=== PATIENT | male | born 1955 | race Caucasian/White ===

== ENCOUNTER 2017-07-04 08:28 | Inpatient (IN) | payer OTHER ==
[2017-07-04] VITALS (16 sets, daily range): BP systolic 105–159; BP diastolic 62–91; PULSE 63–94; RESP 10–20; Ht 165.1 cm; Wt 82.3 kg
[~2017-07-04] VITALS: Ht 165.1 cm; Wt 82.3 kg
[~2017-07-04 08:28] MED LIST: CEFAZOLIN 2 GM/50 ML (PMX) 50 ML IVPB ONE; GEMF600T60 PO; HYDR-2059 PO; HYDR12.58 PO; LACTATED RINGER'S 1,000 ML IV* SCH; LISI10TA2 PO; ROCURONIUM 50 MG INJ ONE; TRANEXAMIC ACID 2,000 MG in SOD CHLORIDE 0.9% 100 ML IVPB ONE; ZOLOFT
[2017-07-04] MEDS ORDERED: TRAZ100T15 PO (09:22)
[2017-07-04] MEDS ORDERED: LOSA100T7 PO (09:22)
[2017-07-04] MEDS ORDERED: AMLO1CAP14 PO (09:22)
[2017-07-04] MEDS ORDERED: NAPR125O4 PO (09:22)
[2017-07-04] MEDS ORDERED: HIP PAIN COCKTAIL (CEFUROXIME) INJ SCH ×7 (11:30)
--- NOTE | 2017-07-04 11:36 | HPN ---
Date/Time of Note Date/Time of Note DATE: 07/04/17 TIME: 11:36 Interval H&P Admission Note Pt. seen H&P reviewed: No system changes GABRIELE ROSS PA-C Jul 04, 2017 11:36
[2017-07-04] MEDS ORDERED: morphine SULFATE/PF (10 MG/10 ML) INJ ONE (12:04)
[2017-07-04] MEDS ORDERED: TRANEXAMIC ACID 1,000 MG in NS AT INCISION X1 IVPB ONE (12:30)
[2017-07-04] MEDS ORDERED: TRANEXAMIC ACID 1,000 MG in NS AT CLOSURE X1 IVPB ONE (12:30)
[2017-07-04] MEDS ORDERED: PHENYLephrine (100 MCG/ML) 5ML SYG ONE (12:42)
[2017-07-04] MEDS ORDERED: FENTAnyl 50 MCG/ML VIAL IV PRN ×2 (14:30)
[2017-07-04] MEDS ORDERED: ONDANSETRON 4 MG INJ IV PRN (14:30)
[2017-07-04] MEDS ORDERED: MEPERIDINE 25 MG INJ IV PRN (14:30)
[2017-07-04] MEDS ORDERED: HYDROmorphONE (0.2 MG/ML) 10ML SYG IV PRN ×3 (14:30)
[2017-07-04] MEDS ORDERED: METOCLOPRAMIDE 10 MG INJ IV PRN (14:30)
[2017-07-04] MEDS ORDERED: DIPHENHYDRAMINE 50 MG INJ IV PRN (14:30)
[2017-07-04] MEDS ORDERED: CEFAZOLIN 1 GM INJ ONE (15:08)
[2017-07-04] MEDS ORDERED: SUCCINYLCHOLINE CHLORIDE 100 MG/5 ML SYG IV ONE (15:08)
[2017-07-04] MEDS ORDERED: ROCURONIUM 50 MG INJ ONE (15:08)
[2017-07-04] MEDS ORDERED: SUGAMMADEX SODIUM 200 MG/2 ML VIAL IV ONE (15:08)
[2017-07-04] MEDS ORDERED: PROPOFOL 40 ML ONE (15:08)
[2017-07-04] MEDS ORDERED: LIDOCAINE 2% (SDV) 5 ML INJ ONE (15:08)
[2017-07-04] MEDS: DEXTROSE 5%-LR 1,000 ML IV SCH ×2 (15:20→21:00)
--- NOTE | 2017-07-04 15:26 | PDOCDIS ---
Discharge Instructions DIAGNOSIS Discharge Diagnosis Status post right total knee arthroplasty CONDITION Patient Condition: Good HOME CARE INSTRUCTIONS: Diet Instructions: Regular ACTIVITY: Activity Restrictions: Slowly Increase Activity Rest between Activity Avoid heavy lifting No Sexual Activity Do not Drive Do not operate Machinery Do not operate Power Tool Avoid Heavy Housework Keep Limb Elevated (Absolutely no pillows or towel underneath the right knee. May use a couple of pillows/towels underneath the right ankle to keep leg in full extension) Weight Bearing (As tolerated using front wheeled walker) Bathing Restrictions: Shower (Keep surgical area completely dry until postoperative appointment in 10-14 days after surgery) FOLLOW UP/APPOINTMENTS Follow-up Plan Follow-up with Dr. Rucker in 10-14 days at appointment given to you at your preoperative visit. GABRIELE ROSS PA-C Jul 04, 2017 15:26
[2017-07-04] MEDS ORDERED: DOCUSATE SODIUM 100 MG CAP PO ONE (15:30)
[2017-07-04] MEDS ORDERED: ASPIRIN (EC) 325 MG TAB PO ONE (15:30)
[2017-07-04] MEDS ORDERED: ZOLPIDEM 5 MG TAB PO PRN (15:30)
[2017-07-04] MEDS ORDERED: DIPHENHYDRAMINE 50 MG INJ IM PRN (15:30)
[2017-07-04] MEDS: ONDANSETRON 4 MG INJ IV SCH ×2 (15:30→21:30)
[2017-07-04] MEDS ORDERED: COUMADIN NOTE XX SCH (15:30)
[2017-07-04] MEDS ORDERED: NALOXONE (0.4 MG/ML) INJ IV PRN (15:30)
[2017-07-04] MEDS ORDERED: NA PHOSPHATE/BIPHOS 133 ML ENEMA PR PRN (15:30)
[2017-07-04] MEDS ORDERED: MAGNESIUM HYDROXIDE 30ML CUP PO PRN (15:30)
[2017-07-04] MEDS ORDERED: BISACODYL 10 MG SUPP PR PRN (15:30)
[2017-07-04] MEDS ORDERED: HYDROmorphONE 0.2 MG/ML PCA IV PRN (15:30)
[2017-07-04] MEDS ORDERED: BETHANECHOL 25 MG TAB PO PRN (15:30)
[2017-07-04] MEDS ORDERED: MEPERIDINE 10 MG/ML 30 ML PCA IV PRN (15:30)
[2017-07-04] MEDS: ACETAMINOPHEN 1000MG/100ML IV 100 ML IVPB SCH ×2 (15:37→23:02)
[2017-07-04] MEDS: CEFAZOLIN 1 GM/50 ML (PMX) 50 ML IVPB SCH ×2 (15:37→23:02)
--- NOTE | 2017-07-04 16:16 | RADRPT ---
PROCEDURE: Right knee x-ray CLINICAL INDICATION: Postop. TECHNIQUE: AP, lateral and oblique views of the knee were obtained. COMPARISON: No. FINDINGS: Subcutaneous emphysema is noted surrounding the patella with some air noted in the joint space. The total right knee arthroplasty was performed. The components appear anatomically aligned. There is scott cency around the medial side of the femoral component. IMPRESSION: 1. Status post total right knee arthroplasty with soft tissue swelling and subcutaneous emphysema r elated to surgery. 2. There is a band of lucency adjacent to the medial side of the femoral component of unclear etiol ogy. Clinical correlation for signs of loosening or infection recommended. RPTAT:AAJJ Physician Sarbjit Date Time Electronically viewed and signed by Physician Sarbjit on 07/04/2017 16:15 HERLINDA/
[2017-07-04] MEDS ORDERED: OXYCODONE/ACETAMINOPHEN (5/325) TAB PO PRN (20:00)
[2017-07-04] MEDS ORDERED: ACETAMINOPHEN 325 MG TAB PO PRN (20:00)
[2017-07-04] MEDS: traZODone 100 MG TAB PO SCH (21:00)
[2017-07-04] MEDS: ATORVASTATIN 40 MG TAB PO SCH (21:00)
[2017-07-04] MEDS: GABAPENTIN 100 MG CAP PO SCH (21:00)
[2017-07-05 02:49] VITALS: BP 120/74; RESP 20
[2017-07-05] MEDS: ONDANSETRON 4 MG INJ IV SCH ×3 (03:30→09:36)
[2017-07-05] MEDS: oxyCODONE 5 MG TAB PO PRN ×5 (04:37→20:58)
[2017-07-05 05:00] VITALS: BP 117/61; RESP 18
[2017-07-05 05:07] LABS: BASOPHILS % 0.3 % (0.0-2.0); EOSINOPHILS # 0.3 10^3/ul (0.0-0.5); EOSINOPHILS % 2.9 % (0.0-7.0); HEMATOCRIT 31.8 % (42.0-52.0); HEMOGLOBIN 10.8 g/dl (14.0-18.0); LYMPHOCYTES # 1.4 10^3/ul (0.8-2.9); LYMPHOCYTES % 15.9 % (15.0-51.0); MEAN CORPUSCULAR HEMOGLOBIN 29.8 pg (29.0-33.0); MEAN CORPUSCULAR VOLUME 87.8 fl (82.0-101.0); MEAN PLATELET VOLUME 11.2 fl (7.4-10.4); MONOCYTE # 0.7 10^3/ul (0.3-0.9); MONOCYTES % 7.3 % (0.0-11.0); NEUTROPHIL # 6.6 10^3/ul (1.6-7.5); NEUTROPHILS % 73.4 % (39.0-77.0); PLATELET COUNT 134 10^3/UL (140-415); RED BLOOD COUNT 3.62 10^6/ul (4.70-6.10); RED CELL DISTRIBUTION WIDTH 13.2 % (11.5-14.5); WHITE BLOOD COUNT 9.1 10^3/ul (4.8-10.8)
[2017-07-05] MEDS ORDERED: BUPIVACAINE 0.25%/EPI (SDV) 30 ML INJ INJ PRN (06:00)
--- NOTE | 2017-07-05 06:06 | OPR ---
DATE OF OPERATION: 07/04/2017 PREOPERATIVE DIAGNOSIS: Right knee osteoarthritis. POSTOPERATIVE DIAGNOSIS: Right knee osteoarthritis. PROCEDURES PERFORMED: 1. Right total knee arthroplasty, CPT code 00596. 2. Computer-assisted surgical navigational procedure for total knee, CPT code 29346. SURGEON: Blessing Rucker MD. MARKET RESEARCH LEAD: 1. Clemente Skinner. 2. GABRIELA Saleem ANESTHESIOLOGIST: Dr. Bartholomew. ANESTHESIA: Spinal. ESTIMATED BLOOD LOSS: 300 mL. COMPLICATIONS: None. SPECIMENS: Resected bone. TOURNIQUET TIME: 90 minutes at 250 mmHg. DISPOSITION: To PACU in stable condition. IMPLANT USED: [employer] doni total knee, size 6 narrow femur, size 4 tibia, 32 mm all symmetric patella, 9 mm posterior stabilized polyethylene. INDICATION FOR PROCEDURE: This is a 62-year-old male with endstage osteoarthritis of the right knee who has failed nonoperative management. Risks , benefits, alternatives of surgical intervention were discussed with the patient and informed consent was obtained. The risks of surgery include but are not limited to infection, deep venous thrombosis, pulmonary embolism, damage to neurovascular structures, wound healing problems, loosening of the prosthesis, wear of prosthesis, need for revision surgery, stiffness, need for blood transfusion, heart attack, stroke, risks associated with anesthesia and even . DESCRIPTION OF PROCEDURE: The patient was met in the preoperative suite. The correct operative site was confirmed and marked. He was then brought into operating room. After induction of spinal anesthesia, he was placed in the supine position on the operating room table. A tourniquet was applied to the right upper thigh and the right lower extremity was prepped and draped in the usual sterile fashion. Before starting, a timeout was taken to identify the correct operative site and to confirm that preoperative antibiotics consisting of 1 gram of IV Ancef along with 1 gram of tranexamic acid were administered. At this point, the right leg was then elevated and exsanguinated. The tourniquet was then insufflated for the above-noted time. A midline incision was made and median parapatellar arthrotomy was then completed. The lateral patellar retinacular ligaments were released and the patella was retracted laterally. A sleeve of tissue was released from the proximal medial tibia. The cruciate and the menisci were excised along with the suprapatellar fat pad. The intramedullary hole was drilled into the femur and the femoral phoebe was attached to the anterior cutting block set at 5 degrees of valgus. The block was then pinned into position and the distal femoral cut was made, taking 9.5 mm of distal femur. All the osteophytes were removed. The femur was sized to a size 6. The 4-in-1 cutting block was pinned and the anterior and posterior condylar cuts followed by the anterior, posterior chamfer cuts were then completed. At this point, the tibia was then subluxed anteriorly using the navigation OrthAlign. The slope was set at 4 degrees with 0 degrees of varus and valgus, 2 mm was resected off the medial tibial plateau and 8 mm off the lateral tibial plateau. The gap billing checker was used and noted to have equal extension and flexion gaps with a 9 mm insert. The tibia was sized to a size 4. The tibial tray was then pinned and the keel was punched. Next, the femoral component was placed and the femoral box cut was then completed. At this point, the patella was sized to 24 mm and 10 mm was resected. The patella was sized to a 32 mm. Trial components along with a 9 mm insert were placed, the knee was noted to have full extension with greater than 120 degrees of flexion. The knee was also stable to varus valgus stress and had excellent patellar tracking. The trial components were removed. All bony surfaces were pulse lavaged and dried. The appropriate size components were brought into the field and cemented. With the removal of excess cement, the knee was held in extension until the cement had cured. At this point, the tourniquet was deflated. The tranexamic acid and antibiotics were redosed. Once the cement had cured, the trial polyethylene was removed and the appropriate size 9 mm posterior stabilized polyethylene was placed. Hemostasis was obtained. The arthrotomy was closed using a #1 Vicryl in interrupted [id number] fashion followed by closure with subcutaneous tissue with 2-0 Vicryl and the skin with 3-0 Monocryl in subcuticular fashion with Steri-Strips. Sterile dressing was applied followed by a cold pack and Reji wrap. The patient was awakened and taken to postoperative care unit in stable condition. Prior to taking the patient to the PACU, he was noted to have bounding dorsalis pedis and posterior tibialis pulses. POSTOPERATIVE CARE: Patient will be weightbearing as tolerated. He will work with physical therapy. He will receive 2 additional doses of IV Ancef along with aspirin 325 mg p.o. b.i.d. for 6 weeks. Upon discharge, he will follow up in my office within 2 weeks postoperatively. Dictated By: BLESSING JEFFREY/AFSANEH Conf#: [id number] DID#: [id number] MTDD
[2017-07-05] MEDS: DEXAMETHASONE 4 MG/ML 1 ML INJ IV SCH (06:28)
--- NOTE | 2017-07-05 07:19 | PN ---
Date/Time of Note Date/Time of Note DATE: 07/05/17 TIME: 07:16 Assessment/Plan VTE Prophylaxis VTE Prophylaxis Intervention: ambulation, SCD's, other (Aspirin 325 mg twice daily) Lines/Catheters IV Catheter Type (from Nrsg): Peripheral IV Killian in Place (from Nrsg): Yes Assessment/Plan Problems: (1) Status post total right knee replacement Assessment/Plan -Pain Meds as needed -Dressing is clean and intact. -OOB with PT -ASA/SCDs for DVT Prophylaxis -Continue monitoring with Internal Medicine -Patient Stable. Possible discharge home today depending on physical therapy progression but likely discharge home tomorrow. Subjective 24 Hr Interval Summary 62-year-old male postop day 1 status post right total knee arthroplasty. Patient states that overnight there was no complaints or acute events. Having pain this morning. Has not performed physical therapy since surgery. Plan is to initiate physical therapy today. Patient has not been weightbearing since. Currently resting comfortably with 3 pillows under the ankle. Pain Control: well controlled Exam/Review of Systems Vital Signs Vitals Vital Signs Date Time Temp Pulse Resp B/P Pulse Ox O2 Delivery O2 Flow Rate FiO2 07/05/17 05:00 98.8 18 117/61 99 Nasal Cannula 2.0 07/05/17 02:49 54 Intake and Output 07/04/17 07/04/17 07/05/17 15:00 23:00 07:00 Intake Total 2300 ml 1190 ml Output Total 420 ml 500 ml 950 ml Balance 1880 ml -500 ml 240 ml Exam Free Text/Dictation -No complications with dressing intact. -5/5 Tibialis Anterior, EHL Gastrocnemius/Soleus and Peroneals -Leg resting in near full extension with 3 pillows under the ankle. Pain with passive range of motion and attempts to achieve full extension. Patient is able to flex to 30 today with pain on passive range of motion. -Normal Sensation -Palpable DP/PT, Capillary Refill <2 secs -No Distal Edema -Negative Kiley Sign/No calf pain -Toes Freely Movable Constitutional: alert, oriented, well developed Results Result Diagram: 07/05/17 0436 GABRIELE ROSS PA-C Jul 05, 2017 07:18
[2017-07-05 08:03] VITALS: BP 154/89; RESP 18
[2017-07-05] MEDS: ACETAMINOPHEN 1000MG/100ML IV 100 ML IVPB SCH ×3 (08:16→22:43)
[2017-07-05] MEDS: DOCUSATE SODIUM 100 MG CAP PO SCH ×2 (08:18→20:59)
[2017-07-05] MEDS: CELECOXIB 200 MG CAP PO SCH ×2 (08:18→22:49)
[2017-07-05] MEDS: FERROUS FUMARATE (SR) TAB PO SCH ×2 (08:18→20:59)
[2017-07-05] MEDS: ASPIRIN (EC) 325 MG TAB PO SCH ×2 (08:18→20:59)
[2017-07-05] MEDS: AMLODIPINE 10 MG TAB PO SCH (08:19)
[2017-07-05] MEDS: SERTRALINE 100 MG TAB PO SCH (08:19)
[2017-07-05] MEDS: LOSARTAN 50 MG TAB PO SCH (08:19)
[2017-07-05] MEDS: CHLORTHALIDONE 25 MG TAB PO SCH (08:19)
[2017-07-05] MEDS: GABAPENTIN 100 MG CAP PO SCH ×2 (08:19→20:59)
[2017-07-05] MEDS: CEFAZOLIN 1 GM/50 ML (PMX) 50 ML IVPB SCH (08:38)
[2017-07-05] MEDS ORDERED: oxyCODONE 5 MG TAB PO PRN (09:00)
--- NOTE | 2017-07-05 09:15 | HP ---
Date/Time of Note Date/Time of Note DATE: 07/04/17 TIME: 1800 Assessment/Plan VTE Prophylaxis VTE Prophylaxis Intervention: SCD's Lines/Catheters IV Catheter Type (from Nrsg): Peripheral IV Urinary Cath still in place: No Assessment/Plan Chief Complaint/Hosp Course Patient is a 62-year-old male presenting for elective right knee total and we need placement Assessment and plan Total right knee replacement Hypertension GERD Chronic pancreatitis Hypertension Depression Osteoarthritis -Management per orthopedics -Restart home meds as able -Pain control Hydrate DC when okay with or so Problems: HPI/ROS Admit Date/Time Admit Date/Time Jul 04, 2017 at 08:28 Hx of Present Illness Please note that this dictation was done approximately the next day given to computer downtime. This dictation should be dated for July 04, 2017 at 1800. Patient is a 62-year-old male with a past medical history significant for hypertension, depression, asthma, chronic pancreatitis who presents to [facility] for elective right knee total knee replacement. Patient underwent successful total knee replacement and was admitted into the hospital for monitoring. Hospitalist service was called for medication management. Patient at time of interview has no acute complaints except for right knee pain. Patient denies any other acute issues at this time. Patient denies nausea, vomiting, shortness of breath, headache, chest pain. Patient takes all medications at home as directed. PMH: Asthma, GERD, pancreatitis, hypertension, depression, osteoarthritis PSH: Right inguinal hernia surgery, pancreatic surgery Social:occasional alcohol, occasional smoking, denies drugs except for occasional marijuana use Meds: Losartan, amlodipine, chlorthalidone, Zoloft, trazodone, atorvastatin, omeprazole PMH/Family/Social Social History Smoking Status: Current every day smoker Exam/Review of Systems Vital Signs Vitals Vital Signs Date Time Temp Pulse Resp B/P Pulse Ox O2 Delivery O2 Flow Rate FiO2 07/05/17 08:03 97.7 80 18 154/89 98 07/05/17 05:00 Nasal Cannula 2.0 Intake and Output 07/04/17 07/04/17 07/05/17 15:00 23:00 07:00 Intake Total 2300 ml 1190 ml Output Total 420 ml 500 ml 950 ml Balance 1880 ml -500 ml 240 ml Exam Exam Physical exam General: Patient is laying in bed and answers questions appropriately Mentation: Patient is alert and oriented 4, Head: Normocephalic atraumatic Eyes: EOMI, pupils reactive to light Neck: Supple, nontender, midline Respiratory: Clear to auscultation bilaterally Cardiovascular: regular rate, no obvious murmurs Gastrointestinal: non-tender to palpation, bowel sounds heard. Neurological: Moves all extremities spontaneously except R LE in immobilizer Skin: No new skin lesions Labs Result Diagram: 07/05/17 0436 Medications Medications Current Medications Lactated Ringer's 1,000 ml @ 0 mls/hr Q0M IV* ; Start 07/04/17 at 06:00 Dextrose/Lactated Ringer's (D5-Lr) 1,000 ml @ 80 mls/hr [id number] IV Last administered on 07/04/17 21:00; Admin Dose 80 MLS/HR; Start 07/04/17 at 15:20 Oxycodone HCl (Roxicodone) 20 mg Q3H PRN PO PAIN LEVEL 8-10 Last administered on 07/05/17 08:24; Admin Dose 20 MG; Start 07/04/17 at 15:30 Oxycodone HCl (Roxicodone) 10 mg Q3H PRN PO PAIN LEVEL 4-7; Start 07/05/17 at 09:00 Oxycodone HCl 5 mg 5 mg Q3H PRN PO PAIN LEVEL 1-3; Start 07/05/17 at 09:00 Acetaminophen (Ofirmev 1000mg/ 100ml Iv) 100 ml @ 400 mls/hr Q8H IVPB Last administered on 07/05/17 08:16; Admin Dose 400 MLS/HR; Start 07/04/17 at 15:30 ; Stop 07/06/17 at 07:44 Zolpidem Tartrate (Ambien) 5 mg HS PRN PO INSOMNIA; Start 07/04/17 at 15:30 Ondansetron HCl (Zofran Inj) 4 mg Q6H IV ; Start 07/04/17 at 15:30; Stop at 09:31 Miscellaneous Information (Note) NOTE XX ; Start 07/04/17 at 15:30 Aspirin (Ecotrin) 325 mg BID PO Last administered on 07/05/17 08:18; Admin Dose 325 MG; Start 07/05/17 at 09:00 Celecoxib (Celebrex) 200 mg BID PO Last administered on 07/05/17 08:18; Admin Dose 200 MG; Start 07/05/17 at 09:00 Dexamethasone (Decadron) 4 mg DAILY@07 IV Last administered on 07/05/17 06:28 ; Admin Dose 4 MG; Start 07/05/17 at 07:00; Stop 07/08/17 at 06:59 Pantoprazole (Protonix Tab) 40 mg DAILY@06 PO ; Start 07/06/17 at 06:00 Docusate Sodium/ Ferrous Fumarate (Leonel-Sequels) 1 tab BID PO Last administered on 07/05/17 08:18; Admin Dose 1 TAB; Start 07/05/17 at 09:00 Docusate Sodium (Colace) 200 mg BID PO Last administered on 07/05/17 08:18; Admin Dose 200 MG; Start 07/05/17 at 09:00; Stop 07/08/17 at 08:59 Simethicone (Mylicon) 80 mg TID PRN PO DISTENSION/GAS/BLOATING; Start 07/04/17 at 15:30 Senna/Docusate Sodium (Senokot-S) 2 tab BID PRN PO CONSTIPATION; Start at 15:30 Magnesium Hydroxide (Milk Of Mag) 30 ml HS PRN PO CONSTIPATION; Start 07/04/17 at 15:30 Bisacodyl (Dulcolax Supp) 10 mg DAILY PRN [place] CONSTIPATION; Start 07/04/17 at 15 :30 Sodium Biphosphate/ Sodium Phosphate (Fleet Enema) 133 ml DAILY PRN [place] CONSTIPATION; Start 07/04/17 at 15:30 Diphenhydramine HCl (Benadryl) 25 mg Q4H PRN IM ITCHING OR RASH; Start at 15:30 Bupivacaine HCl/ Epinephrine Bitart (Marcaine 0.25%/ Epi (Sdv) 30 ml) 20 ml DAILY@06 PRN INJ ADMINSTER BY SURGEON ONLY; Start 07/05/17 at 06:00; Stop 07/15 at 05:59 Naloxone HCl (Narcan) 0.2 mg Q2M PRN IV DECREASED REPIRATORY RATE; Start at 15:30 Gabapentin (Neurontin) 100 mg BID PO Last administered on 07/05/17 08:19; Admin Dose 100 MG; Start 07/04/17 at 21:00; Stop 07/07/17 at 20:59 Losartan Potassium (Cozaar) 100 mg DAILY PO Last administered on 07/05/17 08: 19; Admin Dose 100 MG; Start 07/05/17 at 09:00 Amlodipine Besylate (Norvasc) 10 mg DAILY PO Last administered on 07/05/17 08: 19; Admin Dose 10 MG; Start 07/05/17 at 09:00 Chlorthalidone (Hygroton) 25 mg DAILY PO Last administered on 07/05/17 08:19; Admin Dose 25 MG; Start 07/05/17 at 09:00 Sertraline HCl (Zoloft) 100 mg DAILY PO Last administered on 07/05/17 08:19; Admin Dose 100 MG; Start 07/05/17 at 09:00 Trazodone HCl (Desyrel) 100 mg HS PO ; Start 07/04/17 at 21:00 Atorvastatin Calcium (Lipitor) 40 mg DAILY@21 PO ; Start 07/04/17 at 21:00 Oxycodone/ Acetaminophen (Endocet (10/ 325)) 1 tab Q4H PRN PO PAIN 7-10; Start 07/04/17 at 20:00; Status Future hold Oxycodone/ Acetaminophen (Percocet (5/ 325)) 1 tab Q4H PRN PO PAIN 4-6; Start 07/04/17 at 20:00; Status Future hold Acetaminophen (Tylenol Tab) 325 mg Q6H PRN PO FEVER/ PAIN 1-3; Start 07/04/17 at 20:00 MARYURI SÁNCHEZ Jul 05, 2017 09:15
--- NOTE | 2017-07-05 13:37 | PN ---
Date/Time of Note Date/Time of Note DATE: 07/05/17 TIME: 13:36 Assessment/Plan VTE Prophylaxis VTE Prophylaxis Intervention: SCD's Lines/Catheters IV Catheter Type (from Nrs): Peripheral IV Urinary Cath still in place: No Assessment/Plan Chief Complaint/Hosp Course Patient is a 62-year-old male presenting for elective right knee total and we need placement Assessment and plan Total right knee replacement Hypertension GERD Chronic pancreatitis Hypertension Depression Osteoarthritis -Management per orthopedics -Restart home meds as able -Pain control -PT/OT DISPO: Patient may need PT/OT inpatient due to living alone in [facility] when okay with ortho Problems: Subjective 24 Hr Interval Summary Free Text/Dictation no acute issues or complaints Exam/Review of Systems Vital Signs Vitals Vital Signs Date Time Temp Pulse Resp B/P Pulse Ox O2 Delivery O2 Flow Rate FiO2 07/05/17 08:03 97.7 80 18 154/89 98 07/05/17 05:00 Nasal Cannula 2.0 Intake and Output 07/04/17 07/04/17 07/05/17 15:00 23:00 07:00 Intake Total 2300 ml 1190 ml Output Total 420 ml 500 ml 950 ml Balance 1880 ml -500 ml 240 ml Exam Physical exam General: Patient is laying in bed and answers questions appropriately Mentation: Patient is alert and oriented 4, Head: Normocephalic atraumatic Eyes: EOMI, pupils reactive to light Neck: Supple, nontender, midline Respiratory: Clear to auscultation bilaterally Cardiovascular: regular rate, no obvious murmurs Gastrointestinal: non-tender to palpation, bowel sounds heard. Neurological: Moves all extremities spontaneously except R LE in immobilizer Skin: No new skin lesions Results Result Diagram: 07/05/17 0436 Results 24 hrs Laboratory Tests Test 07/05/17 04:36 White Blood Count 9.1 Red Blood Count 3.62 L Hemoglobin 10.8 L Hematocrit 31.8 L Mean Corpuscular Volume 87.8 Mean Corpuscular Hemoglobin 29.8 Mean Corpuscular Hemoglobin Concent 34.0 Red Cell Distribution Width 13.2 Platelet Count 134 L Mean Platelet Volume 11.2 H Neutrophils % 73.4 Lymphocytes % 15.9 Monocytes % 7.3 Eosinophils % 2.9 Basophils % 0.3 Nucleated Red Blood Cells % 0.0 Neutrophils # 6.6 Lymphocytes # 1.4 Monocytes # 0.7 Eosinophils # 0.3 Basophils # 0.0 Nucleated Red Blood Cells # 0.0 Medications Medications Current Medications Lactated Ringer's (Lr) 1,000 ml @ 0 mls/hr Q0M IV* ; Start 07/04/17 at 06:00 Oxycodone HCl (Roxicodone) 20 mg Q3H PRN PO PAIN LEVEL 8-10 Last administered on 07/05/17 11:45; Admin Dose 20 MG; Start 07/04/17 at 15:30 Oxycodone HCl (Roxicodone) 10 mg Q3H PRN PO PAIN LEVEL 4-7; Start 07/05/17 at 09:00 Oxycodone HCl 5 mg 5 mg Q3H PRN PO PAIN LEVEL 1-3; Start 07/05/17 at 09:00 Acetaminophen (Ofirmev 1000mg/ 100ml Iv) 100 ml @ 400 mls/hr Q8H IVPB Last administered on 07/05/17 08:16; Admin Dose 400 MLS/HR; Start 07/04/17 at 15:30 ; Stop 07/06/17 at 07:44 Zolpidem Tartrate (Ambien) 5 mg HS PRN PO INSOMNIA; Start 07/04/17 at 15:30 Miscellaneous Information (Note) NOTE XX ; Start 07/04/17 at 15:30 Aspirin (Ecotrin) 325 mg BID PO Last administered on 07/05/17 08:18; Admin Dose 325 MG; Start 07/05/17 at 09:00 Celecoxib (Celebrex) 200 mg BID PO Last administered on 07/05/17 08:18; Admin Dose 200 MG; Start 07/05/17 at 09:00 Dexamethasone (Decadron) 4 mg DAILY@07 IV Last administered on 07/05/17 06:28 ; Admin Dose 4 MG; Start 07/05/17 at 07:00; Stop 07/08/17 at 06:59 Pantoprazole (Protonix Tab) 40 mg DAILY@06 PO ; Start 07/06/17 at 06:00 Docusate Sodium/ Ferrous Fumarate (Leonel-Sequels) 1 tab BID PO Last administered on 07/05/17 08:18; Admin Dose 1 TAB; Start 07/05/17 at 09:00 Docusate Sodium (Colace) 200 mg BID PO Last administered on 07/05/17 08:18; Admin Dose 200 MG; Start 07/05/17 at 09:00; Stop 07/08/17 at 08:59 Simethicone (Mylicon) 80 mg TID PRN PO DISTENSION/GAS/BLOATING; Start 07/04/17 at 15:30 Senna/Docusate Sodium (Senokot-S) 2 tab BID PRN PO CONSTIPATION; Start at 15:30 Magnesium Hydroxide (Milk Of Mag) 30 ml HS PRN PO CONSTIPATION; Start 07/04/17 at 15:30 Bisacodyl (Dulcolax Supp) 10 mg DAILY PRN [place] CONSTIPATION; Start 07/04/17 at 15 :30 Sodium Biphosphate/ Sodium Phosphate (Fleet Enema) 133 ml DAILY PRN [place] CONSTIPATION; Start 07/04/17 at 15:30 Diphenhydramine HCl (Benadryl) 25 mg Q4H PRN IM ITCHING OR RASH; Start at 15:30 Bupivacaine HCl/ Epinephrine Bitart (Marcaine 0.25%/ Epi (Sdv) 30 ml) 20 ml DAILY@06 PRN INJ ADMINSTER BY SURGEON ONLY; Start 07/05/17 at 06:00; Stop 07/15 at 05:59 Naloxone HCl (Narcan) 0.2 mg Q2M PRN IV DECREASED REPIRATORY RATE; Start at 15:30 Gabapentin (Neurontin) 100 mg BID PO Last administered on 07/05/17 08:19; Admin Dose 100 MG; Start 07/04/17 at 21:00; Stop 07/07/17 at 20:59 Losartan Potassium (Cozaar) 100 mg DAILY PO Last administered on 07/05/17 08: 19; Admin Dose 100 MG; Start 07/05/17 at 09:00 Amlodipine Besylate (Norvasc) 10 mg DAILY PO Last administered on 07/05/17 08: 19; Admin Dose 10 MG; Start 07/05/17 at 09:00 Chlorthalidone (Hygroton) 25 mg DAILY PO Last administered on 07/05/17 08:19; Admin Dose 25 MG; Start 07/05/17 at 09:00 Sertraline HCl (Zoloft) 100 mg DAILY PO Last administered on 07/05/17 08:19; Admin Dose 100 MG; Start 07/05/17 at 09:00 Trazodone HCl (Desyrel) 100 mg HS PO ; Start 07/04/17 at 21:00 Atorvastatin Calcium (Lipitor) 40 mg DAILY@21 PO ; Start 07/04/17 at 21:00 Oxycodone/ Acetaminophen (Endocet (10/ 325)) 1 tab Q4H PRN PO PAIN 7-10; Start 07/04/17 at 20:00; Status Future hold Oxycodone/ Acetaminophen (Percocet (5/ 325)) 1 tab Q4H PRN PO PAIN 4-6; Start 07/04/17 at 20:00; Status Future hold Acetaminophen (Tylenol Tab) 325 mg Q6H PRN PO FEVER/ PAIN 1-3; Start 07/04/17 at 20:00 MARYURI SÁNCHEZ Jul 05, 2017 13:37
[2017-07-05 17:35] VITALS: BP 128/81; RESP 18
[2017-07-05 20:00] VITALS: BP 129/58; RESP 18
[2017-07-05] MEDS: ATORVASTATIN 40 MG TAB PO SCH (20:59)
[2017-07-05] MEDS: traZODone 100 MG TAB PO SCH (20:59)
[2017-07-06] MEDS: oxyCODONE 5 MG TAB PO PRN ×2 (00:22→15:38)
[2017-07-06 02:00] VITALS: BP 129/73; RESP 18
[2017-07-06 05:20] LABS: BASOPHILS % 0.1 % (0.0-2.0); EOSINOPHILS % 0.2 % (0.0-7.0); HEMATOCRIT 29.3 % (42.0-52.0); HEMOGLOBIN 10.2 g/dl (14.0-18.0); LYMPHOCYTES # 1.3 10^3/ul (0.8-2.9); LYMPHOCYTES % 12.5 % (15.0-51.0); MEAN CORPUSCULAR HEMOGLOBIN 30.6 pg (29.0-33.0); MEAN CORPUSCULAR HGB CONC 34.8 g/dl (32.0-37.0); MEAN PLATELET VOLUME 11.8 fl (7.4-10.4); MONOCYTE # 0.7 10^3/ul (0.3-0.9); MONOCYTES % 6.7 % (0.0-11.0); NEUTROPHIL # 8.1 10^3/ul (1.6-7.5); NEUTROPHILS % 80.2 % (39.0-77.0); PLATELET COUNT 134 10^3/UL (140-415); POSITIVE DIFF @See below; RED BLOOD COUNT 3.33 10^6/ul (4.70-6.10); RED CELL DISTRIBUTION WIDTH 13.2 % (11.5-14.5)
[2017-07-06] MEDS: DEXAMETHASONE 4 MG/ML 1 ML INJ IV SCH (06:15)
[2017-07-06] MEDS: PANTOPRAZOLE (EC) 40 MG TAB PO SCH (06:15)
[2017-07-06 06:18] LABS: CALCIUM 8.2 mg/dl (8.4-10.2); CREATININE 1.14 mg/dl (0.61-1.24); PHOSPHORUS 3.8 mg/dl (2.5-4.9); POTASSIUM 3.2 mmol/L (3.5-5.1)
[2017-07-06] MEDS: ACETAMINOPHEN 1000MG/100ML IV 100 ML IVPB SCH (06:18)
[2017-07-06 07:00] VITALS: BP 135/63; RESP 18
[2017-07-06] MEDS: SERTRALINE 100 MG TAB PO SCH (09:15)
[2017-07-06] MEDS: FERROUS FUMARATE (SR) TAB PO SCH ×2 (09:16→20:12)
[2017-07-06] MEDS: CHLORTHALIDONE 25 MG TAB PO SCH (09:16)
[2017-07-06] MEDS: CELECOXIB 200 MG CAP PO SCH ×2 (09:16→20:12)
[2017-07-06] MEDS: DOCUSATE SODIUM 100 MG CAP PO SCH ×2 (09:16→20:12)
[2017-07-06] MEDS: AMLODIPINE 10 MG TAB PO SCH (09:16)
[2017-07-06] MEDS: ASPIRIN (EC) 325 MG TAB PO SCH ×2 (09:16→20:12)
[2017-07-06] MEDS: GABAPENTIN 100 MG CAP PO SCH ×2 (09:16→20:12)
[2017-07-06] MEDS: LOSARTAN 50 MG TAB PO SCH (09:17)
--- NOTE | 2017-07-06 13:46 | PN ---
Date/Time of Note Date/Time of Note DATE: 07/06/17 TIME: 13:46 Assessment/Plan VTE Prophylaxis VTE Prophylaxis Intervention: SCD's Lines/Catheters IV Catheter Type (from Nrs): Peripheral IV Urinary Cath still in place: No Assessment/Plan Chief Complaint/Hosp Course Patient is a 62-year-old male presenting for elective right knee total and we need placement Assessment and plan Total right knee replacement Hypertension GERD Chronic pancreatitis Hypertension Depression Osteoarthritis -Management per orthopedics -Restart home meds as able -Pain control -PT/OT DISPO: Patient may need PT/OT inpatient due to living alone in [facility] when okay with ortho Problems: Subjective 24 Hr Interval Summary Free Text/Dictation no acute overnight events Exam/Review of Systems Vital Signs Vitals Vital Signs Date Time Temp Pulse Resp B/P Pulse Ox O2 Delivery O2 Flow Rate FiO2 07/06/17 07:00 98.7 63 18 135/63 97 07/05/17 20:00 Nasal Cannula 2.0 Intake and Output 07/05/17 07/05/17 07/06/17 15:00 23:00 07:00 Intake Total 390 ml 1160 ml 800 ml Output Total 500 ml 550 ml Balance 390 ml 660 ml 250 ml Exam Physical exam General: Patient is laying in bed and answers questions appropriately Mentation: Patient is alert and oriented 4, Head: Normocephalic atraumatic Eyes: EOMI, pupils reactive to light Neck: Supple, nontender, midline Respiratory: Clear to auscultation bilaterally Cardiovascular: regular rate, no obvious murmurs Gastrointestinal: non-tender to palpation, bowel sounds heard. Neurological: Moves all extremities spontaneously except R LE in immobilizer Skin: No new skin lesions Results Result Diagram: 07/06/17 0432 07/06/17 0432 Results 24 hrs Laboratory Tests Test 07/06/17 04:32 White Blood Count 10.0 Red Blood Count 3.33 L Hemoglobin 10.2 L Hematocrit 29.3 L Mean Corpuscular Volume 88.0 Mean Corpuscular Hemoglobin 30.6 Mean Corpuscular Hemoglobin Concent 34.8 Red Cell Distribution Width 13.2 Platelet Count 134 L Mean Platelet Volume 11.8 H Neutrophils % 80.2 H Lymphocytes % 12.5 L Monocytes % 6.7 Eosinophils % 0.2 Basophils % 0.1 Nucleated Red Blood Cells % 0.0 Neutrophils # 8.1 H Lymphocytes # 1.3 Monocytes # 0.7 Eosinophils # 0.0 Basophils # 0.0 Nucleated Red Blood Cells # 0.0 Sodium Level 143 Potassium Level 3.2 L Chloride Level 101 Carbon Dioxide Level 33 H Anion Gap 12 Blood Urea Nitrogen 14 Creatinine 1.14 Glucose Level 121 Calcium Level 8.2 L Phosphorus Level 3.8 Magnesium Level 2.0 Medications Medications Current Medications Lactated Ringer's (Lr) 1,000 ml @ 0 mls/hr Q0M IV* ; Start 07/04/17 at 06:00 Oxycodone HCl (Roxicodone) 20 mg Q3H PRN PO PAIN LEVEL 8-10 Last administered on 07/06/17 00:22; Admin Dose 20 MG; Start 07/04/17 at 15:30 Oxycodone HCl (Roxicodone) 10 mg Q3H PRN PO PAIN LEVEL 4-7; Start 07/05/17 at 09:00 Oxycodone HCl (Roxicodone) 5 mg Q3H PRN PO PAIN LEVEL 1-3 Last administered on 07/05/17 23:44; Admin Dose 5 MG; Start 07/05/17 at 09:00 Zolpidem Tartrate (Ambien) 5 mg HS PRN PO INSOMNIA; Start 07/04/17 at 15:30 Miscellaneous Information (Note) NOTE XX ; Start 07/04/17 at 15:30 Aspirin (Ecotrin) 325 mg BID PO Last administered on 07/06/17 09:16; Admin Dose 325 MG; Start 07/05/17 at 09:00 Celecoxib (Celebrex) 200 mg BID PO Last administered on 07/06/17 09:16; Admin Dose 200 MG; Start 07/05/17 at 09:00 Dexamethasone (Decadron) 4 mg DAILY@07 IV Last administered on 07/06/17 06:15 ; Admin Dose 4 MG; Start 07/05/17 at 07:00; Stop 07/08/17 at 06:59 Pantoprazole (Protonix Tab) 40 mg DAILY@06 PO Last administered on 07/06/17 06 :15; Admin Dose 40 MG; Start 07/06/17 at 06:00 Docusate Sodium/ Ferrous Fumarate (Leonel-Sequels) 1 tab BID PO Last administered on 07/06/17 09:16; Admin Dose 1 TAB; Start 07/05/17 at 09:00 Docusate Sodium (Colace) 200 mg BID PO Last administered on 07/06/17 09:16; Admin Dose 200 MG; Start 07/05/17 at 09:00; Stop 07/08/17 at 08:59 Simethicone (Mylicon) 80 mg TID PRN PO DISTENSION/GAS/BLOATING; Start 07/04/17 at 15:30 Senna/Docusate Sodium (Senokot-S) 2 tab BID PRN PO CONSTIPATION; Start at 15:30 Magnesium Hydroxide (Milk Of Mag) 30 ml HS PRN PO CONSTIPATION; Start 07/04/17 at 15:30 Bisacodyl (Dulcolax Supp) 10 mg DAILY PRN [place] CONSTIPATION; Start 07/04/17 at 15 :30 Sodium Biphosphate/ Sodium Phosphate (Fleet Enema) 133 ml DAILY PRN [place] CONSTIPATION; Start 07/04/17 at 15:30 Diphenhydramine HCl (Benadryl) 25 mg Q4H PRN IM ITCHING OR RASH; Start at 15:30 Bupivacaine HCl/ Epinephrine Bitart (Marcaine 0.25%/ Epi (Sdv) 30 ml) 20 ml DAILY@06 PRN INJ ADMINSTER BY SURGEON ONLY; Start 07/05/17 at 06:00; Stop 07/15 at 05:59 Naloxone HCl (Narcan) 0.2 mg Q2M PRN IV DECREASED REPIRATORY RATE; Start at 15:30 Gabapentin (Neurontin) 100 mg BID PO Last administered on 07/06/17 09:16; Admin Dose 100 MG; Start 07/04/17 at 21:00; Stop 07/07/17 at 20:59 Losartan Potassium (Cozaar) 100 mg DAILY PO Last administered on 07/06/17 09: 17; Admin Dose 100 MG; Start 07/05/17 at 09:00 Amlodipine Besylate (Norvasc) 10 mg DAILY PO Last administered on 07/06/17 09: 16; Admin Dose 10 MG; Start 07/05/17 at 09:00 Chlorthalidone (Hygroton) 25 mg DAILY PO Last administered on 07/06/17 09:16; Admin Dose 25 MG; Start 07/05/17 at 09:00 Sertraline HCl (Zoloft) 100 mg DAILY PO Last administered on 07/06/17 09:15; Admin Dose 100 MG; Start 07/05/17 at 09:00 Trazodone HCl (Desyrel) 100 mg HS PO Last administered on 07/05/17 20:59; Admin Dose 100 MG; Start 07/04/17 at 21:00 Atorvastatin Calcium (Lipitor) 40 mg DAILY@21 PO Last administered on 20:59; Admin Dose 40 MG; Start 07/04/17 at 21:00 Oxycodone/ Acetaminophen (Endocet (10/ 325)) 1 tab Q4H PRN PO BREAKTHROUGH PAIN ; Start 07/04/17 at 20:00; Status Future hold Oxycodone/ Acetaminophen (Percocet (5/ 325)) 1 tab Q4H PRN PO PAIN 4-6; Start 07/04/17 at 20:00; Status Future hold Acetaminophen (Tylenol Tab) 325 mg Q6H PRN PO FEVER/ PAIN 1-3; Start 07/04/17 at 20:00 MARYURI SÁNCHEZ Jul 06, 2017 13:46
[2017-07-06 14:00] VITALS: BP 149/88; RESP 18
[2017-07-06] MEDS ORDERED: POTASSIUM CHLORIDE 20 MEQ POWDER FOR ORAL SOLN PO ONE (14:00)
[2017-07-06] MEDS ORDERED: CALCIUM CARBONATE 500 MG CHEW TAB PO ONE (14:30)
[2017-07-06] MEDS ORDERED: FAMOTIDINE 20 MG INJ IV ONE (14:30)
[2017-07-06] MEDS: OXYCODONE/ACETAMINOPHEN (10/325) TAB PO PRN (17:52)
[2017-07-06 19:54] VITALS: BP 160/85; RESP 18
[2017-07-06] MEDS: traZODone 100 MG TAB PO SCH (20:12)
[2017-07-06] MEDS: ATORVASTATIN 40 MG TAB PO SCH (20:12)
[2017-07-07 01:51] VITALS: BP 152/80; RESP 18
[2017-07-07 05:09] LABS: BASOPHILS % 0.1 % (0.0-2.0); EOSINOPHILS # 0.1 10^3/ul (0.0-0.5); EOSINOPHILS % 0.5 % (0.0-7.0); HEMOGLOBIN 10.1 g/dl (14.0-18.0); LYMPHOCYTES # 1.4 10^3/ul (0.8-2.9); LYMPHOCYTES % 14.5 % (15.0-51.0); MEAN CORPUSCULAR HEMOGLOBIN 30.5 pg (29.0-33.0); MEAN CORPUSCULAR HGB CONC 34.8 g/dl (32.0-37.0); MEAN CORPUSCULAR VOLUME 87.6 fl (82.0-101.0); MEAN PLATELET VOLUME 11.8 fl (7.4-10.4); MONOCYTE # 0.6 10^3/ul (0.3-0.9); MONOCYTES % 6.9 % (0.0-11.0); NEUTROPHIL # 7.2 10^3/ul (1.6-7.5); NEUTROPHILS % 77.5 % (39.0-77.0); PLATELET COUNT 126 10^3/UL (140-415); POSITIVE DIFF @See below; RED BLOOD COUNT 3.31 10^6/ul (4.70-6.10); RED CELL DISTRIBUTION WIDTH 13.5 % (11.5-14.5); WHITE BLOOD COUNT 9.3 10^3/ul (4.8-10.8)
[2017-07-07 05:31] LABS: CALCIUM 8.8 mg/dl (8.4-10.2); CREATININE 1.01 mg/dl (0.61-1.24); MAGNESIUM 1.9 mg/dl (1.7-2.5); PHOSPHORUS 3.5 mg/dl (2.5-4.9); POTASSIUM 3.4 mmol/L (3.5-5.1)
[2017-07-07] MEDS: PANTOPRAZOLE (EC) 40 MG TAB PO SCH (05:57)
[2017-07-07] MEDS: DEXAMETHASONE 4 MG/ML 1 ML INJ IV SCH (05:58)
[2017-07-07 08:00] VITALS: BP 144/93; RESP 17
--- NOTE | 2017-07-07 08:35 | PN ---
Date/Time of Note Date/Time of Note DATE: 07/07/17 TIME: 08:34 Assessment/Plan VTE Prophylaxis VTE Prophylaxis Intervention: ambulation, SCD's, other (Aspirin 325 mg) Lines/Catheters IV Catheter Type (from Nrsg): Peripheral IV Killian in Place (from Nrsg): No Assessment/Plan Assessment/Plan -Pain Meds as needed -ASA for DVT Prophylaxis x 6 weeks outpatient discussed. -Continue monitoring as outpatient on discharge -Follow-up at scheduled postop outpatient appointment or sooner if there is any issue. -Patient Stable -Discharge to SNF vs ARU Subjective 24 Hr Interval Summary 62-year-old male postop day 2 status post right total knee arthroplasty. Patient is up and walking throughout the hallways. Patient having some discomfort with weightbearing and range of motion. Denies any calf pain, chest pain/tightness or shortness of breath. Plan is to discharge to intermediate facility versus acute rehab facility today. Pain Control: well controlled Exam/Review of Systems Vital Signs Vitals Vital Signs Date Time Temp Pulse Resp B/P Pulse Ox O2 Delivery O2 Flow Rate FiO2 07/07/17 08:00 98.4 77 17 144/93 99 07/05/17 20:00 Nasal Cannula 2.0 Intake and Output 07/06/17 07/06/17 07/07/17 15:00 23:00 07:00 Intake Total 820 ml 300 ml Output Total 1075 ml 500 ml Balance -255 ml -200 ml Exam Free Text/Dictation -No complications with dressing intact. -5/5 Tibialis Anterior, EHL Gastrocnemius/Soleus and Peroneals -Normal Sensation -Palpable DP/PT, Capillary Refill <2 secs -No Distal Edema -Negative Kiley Sign/No calf pain -Toes Freely Movable Results Result Diagram: 07/07/17 0445 07/07/17 0445 GABRIELE ROSS PA-C Jul 07, 2017 08:35
[2017-07-07] MEDS: AMLODIPINE 10 MG TAB PO SCH (08:38)
[2017-07-07] MEDS: ASPIRIN (EC) 325 MG TAB PO SCH ×2 (08:38→21:23)
[2017-07-07] MEDS: SENNA/DOCUSATE NA (8.6MG/50MG) TAB PO PRN (08:38)
[2017-07-07] MEDS: FERROUS FUMARATE (SR) TAB PO SCH ×2 (08:39→21:24)
[2017-07-07] MEDS: DOCUSATE SODIUM 100 MG CAP PO SCH ×2 (08:39→21:23)
[2017-07-07] MEDS: CELECOXIB 200 MG CAP PO SCH ×2 (08:39→21:23)
[2017-07-07] MEDS: GABAPENTIN 100 MG CAP PO SCH (08:39)
[2017-07-07] MEDS: LOSARTAN 50 MG TAB PO SCH (08:39)
[2017-07-07] MEDS: CHLORTHALIDONE 25 MG TAB PO SCH (08:39)
[2017-07-07] MEDS: SERTRALINE 100 MG TAB PO SCH (08:46)
[2017-07-07] MEDS: oxyCODONE 5 MG TAB PO PRN (13:04)
--- NOTE | 2017-07-07 14:05 | PN ---
Date/Time of Note Date/Time of Note DATE: 07/07/17 TIME: 14:05 Assessment/Plan VTE Prophylaxis VTE Prophylaxis Intervention: ambulation Lines/Catheters IV Catheter Type (from Nrs): Peripheral IV Urinary Cath still in place: No Assessment/Plan Chief Complaint/Hosp Course Patient is a 62-year-old male presenting for elective right knee total and we need placement Assessment and plan Total right knee replacement Hypertension GERD Chronic pancreatitis Hypertension Depression Osteoarthritis -Management per orthopedics -Restart home meds as able -Pain control -PT/OT DISPO: Patient may need PT/OT inpatient due to living alone in [facility] when okay with ortho Problems: Subjective 24 Hr Interval Summary Free Text/Dictation no acute complaints Exam/Review of Systems Vital Signs Vitals Vital Signs Date Time Temp Pulse Resp B/P Pulse Ox O2 Delivery O2 Flow Rate FiO2 07/07/17 08:00 98.4 77 17 144/93 99 07/05/17 20:00 Nasal Cannula 2.0 Intake and Output 07/06/17 07/06/17 07/07/17 15:00 23:00 07:00 Intake Total 820 ml 300 ml Output Total 1075 ml 500 ml Balance -255 ml -200 ml Exam Physical exam General: Patient is laying in bed and answers questions appropriately Mentation: Patient is alert and oriented 4, Head: Normocephalic atraumatic Eyes: EOMI, pupils reactive to light Neck: Supple, nontender, midline Respiratory: Clear to auscultation bilaterally Cardiovascular: regular rate, no obvious murmurs Gastrointestinal: non-tender to palpation, bowel sounds heard. Neurological: Moves all extremities spontaneously Skin: No new skin lesions Results Result Diagram: 07/07/175 07/07/175 Results 24 hrs Laboratory Tests Test 07/07/17 04:45 White Blood Count 9.3 Red Blood Count 3.31 L Hemoglobin 10.1 L Hematocrit 29.0 L Mean Corpuscular Volume 87.6 Mean Corpuscular Hemoglobin 30.5 Mean Corpuscular Hemoglobin Concent 34.8 Red Cell Distribution Width 13.5 Platelet Count 126 L Mean Platelet Volume 11.8 H Neutrophils % 77.5 H Lymphocytes % 14.5 L Monocytes % 6.9 Eosinophils % 0.5 Basophils % 0.1 Nucleated Red Blood Cells % 0.0 Neutrophils # 7.2 Lymphocytes # 1.4 Monocytes # 0.6 Eosinophils # 0.1 Basophils # 0.0 Nucleated Red Blood Cells # 0.0 Sodium Level 143 Potassium Level 3.4 L Chloride Level 104 Carbon Dioxide Level 32 H Anion Gap 10 Blood Urea Nitrogen 14 Creatinine 1.01 Glucose Level 114 Calcium Level 8.8 Phosphorus Level 3.5 Magnesium Level 1.9 Medications Medications Current Medications Lactated Ringer's (Lr) 1,000 ml @ 0 mls/hr Q0M IV* ; Start 07/04/17 at 06:00 Oxycodone HCl (Roxicodone) 20 mg Q3H PRN PO PAIN LEVEL 8-10 Last administered on 07/07/17 13:04; Admin Dose 20 MG; Start 07/04/17 at 15:30 Oxycodone HCl (Roxicodone) 10 mg Q3H PRN PO PAIN LEVEL 4-7; Start 07/05/17 at 09:00 Oxycodone HCl (Roxicodone) 5 mg Q3H PRN PO PAIN LEVEL 1-3 Last administered on 07/05/17 23:44; Admin Dose 5 MG; Start 07/05/17 at 09:00 Zolpidem Tartrate (Ambien) 5 mg HS PRN PO INSOMNIA; Start 07/04/17 at 15:30 Miscellaneous Information (Note) NOTE XX ; Start 07/04/17 at 15:30 Aspirin (Ecotrin) 325 mg BID PO Last administered on 07/07/17 08:38; Admin Dose 325 MG; Start 07/05/17 at 09:00 Celecoxib (Celebrex) 200 mg BID PO Last administered on 07/07/17 08:39; Admin Dose 200 MG; Start 07/05/17 at 09:00 Dexamethasone (Decadron) 4 mg DAILY@07 IV Last administered on 07/07/17 05:58 ; Admin Dose 4 MG; Start 07/05/17 at 07:00; Stop 07/08/17 at 06:59 Pantoprazole (Protonix Tab) 40 mg DAILY@06 PO Last administered on 07/07/17 05 :57; Admin Dose 40 MG; Start 07/06/17 at 06:00 Docusate Sodium/ Ferrous Fumarate (Leonel-Sequels) 1 tab BID PO Last administered on 07/07/17 08:39; Admin Dose 1 TAB; Start 07/05/17 at 09:00 Docusate Sodium (Colace) 200 mg BID PO Last administered on 07/07/17 08:39; Admin Dose 200 MG; Start 07/05/17 at 09:00; Stop 07/08/17 at 08:59 Simethicone (Mylicon) 80 mg TID PRN PO DISTENSION/GAS/BLOATING; Start 07/04/17 at 15:30 Senna/Docusate Sodium (Senokot-S) 2 tab BID PRN PO CONSTIPATION Last administered on 07/07/17 08:38; Admin Dose 2 TAB; Start 07/04/17 at 15:30 Magnesium Hydroxide (Milk Of Mag) 30 ml HS PRN PO CONSTIPATION; Start 07/04/17 at 15:30 Bisacodyl (Dulcolax Supp) 10 mg DAILY PRN [place] CONSTIPATION; Start 07/04/17 at 15 :30 Sodium Biphosphate/ Sodium Phosphate (Fleet Enema) 133 ml DAILY PRN [place] CONSTIPATION; Start 07/04/17 at 15:30 Diphenhydramine HCl (Benadryl) 25 mg Q4H PRN IM ITCHING OR RASH; Start at 15:30 Bupivacaine HCl/ Epinephrine Bitart (Marcaine 0.25%/ Epi (Sdv) 30 ml) 20 ml DAILY@06 PRN INJ ADMINSTER BY SURGEON ONLY; Start 07/05/17 at 06:00; Stop 07/15 at 05:59 Naloxone HCl (Narcan) 0.2 mg Q2M PRN IV DECREASED REPIRATORY RATE; Start at 15:30 Gabapentin (Neurontin) 100 mg BID PO Last administered on 07/07/17 08:39; Admin Dose 100 MG; Start 07/04/17 at 21:00; Stop 07/07/17 at 20:59 Losartan Potassium (Cozaar) 100 mg DAILY PO Last administered on 07/07/17 08: 39; Admin Dose 100 MG; Start 07/05/17 at 09:00 Amlodipine Besylate (Norvasc) 10 mg DAILY PO Last administered on 07/07/17 08: 38; Admin Dose 10 MG; Start 07/05/17 at 09:00 Chlorthalidone (Hygroton) 25 mg DAILY PO Last administered on 07/07/17 08:39; Admin Dose 25 MG; Start 07/05/17 at 09:00 Sertraline HCl (Zoloft) 100 mg DAILY PO Last administered on 07/07/17 08:46; Admin Dose 100 MG; Start 07/05/17 at 09:00 Trazodone HCl (Desyrel) 100 mg HS PO Last administered on 07/06/17 20:12; Admin Dose 100 MG; Start 07/04/17 at 21:00 Atorvastatin Calcium (Lipitor) 40 mg DAILY@21 PO Last administered on 20:12; Admin Dose 40 MG; Start 07/04/17 at 21:00 Oxycodone/ Acetaminophen (Endocet (10/ 325)) 1 tab Q4H PRN PO BREAKTHROUGH PAIN Last administered on 07/06/17 17:52; Admin Dose 1 TAB; Start 07/04/17 at 20:00 Oxycodone/ Acetaminophen (Percocet (5/ 325)) 1 tab Q4H PRN PO PAIN 4-6; Start 07/04/17 at 20:00; Status Future hold Acetaminophen (Tylenol Tab) 325 mg Q6H PRN PO FEVER/ PAIN 1-3; Start 07/04/17 at 20:00 MARYURI SÁNCHEZ Jul 07, 2017 14:05
[2017-07-07] MEDS ORDERED: POTASSIUM CHLORIDE 250 ML IVPB ONE (14:30)
[2017-07-07 20:12] VITALS: BP 154/84; RESP 18
[2017-07-07] MEDS: traZODone 100 MG TAB PO SCH (21:23)
[2017-07-07] MEDS: ATORVASTATIN 40 MG TAB PO SCH (21:24)
[2017-07-08] MEDS: oxyCODONE 5 MG TAB PO PRN ×5 (00:18→21:04)
[2017-07-08 02:30] VITALS: BP 150/90; RESP 18
[2017-07-08] MEDS: OXYCODONE/ACETAMINOPHEN (10/325) TAB PO PRN ×3 (02:48→15:36)
[2017-07-08 05:11] LABS: BASOPHILS % 0.3 % (0.0-2.0); EOSINOPHILS # 0.1 10^3/ul (0.0-0.5); HEMATOCRIT 30.3 % (42.0-52.0); HEMOGLOBIN 10.2 g/dl (14.0-18.0); LYMPHOCYTES # 1.7 10^3/ul (0.8-2.9); LYMPHOCYTES % 16.7 % (15.0-51.0); MEAN CORPUSCULAR HEMOGLOBIN 29.7 pg (29.0-33.0); MEAN CORPUSCULAR HGB CONC 33.7 g/dl (32.0-37.0); MEAN CORPUSCULAR VOLUME 88.3 fl (82.0-101.0); MEAN PLATELET VOLUME 11.4 fl (7.4-10.4); MONOCYTE # 0.7 10^3/ul (0.3-0.9); MONOCYTES % 6.4 % (0.0-11.0); NEUTROPHIL # 7.6 10^3/ul (1.6-7.5); NEUTROPHILS % 74.8 % (39.0-77.0); PLATELET COUNT 135 10^3/UL (140-415); POSITIVE DIFF @See below; RED BLOOD COUNT 3.43 10^6/ul (4.70-6.10); RED CELL DISTRIBUTION WIDTH 13.6 % (11.5-14.5); WHITE BLOOD COUNT 10.2 10^3/ul (4.8-10.8)
[2017-07-08] MEDS: PANTOPRAZOLE (EC) 40 MG TAB PO SCH (06:08)
[2017-07-08 08:02] VITALS: BP 154/99; RESP 18
[2017-07-08] MEDS: CELECOXIB 200 MG CAP PO SCH ×2 (08:57→21:04)
[2017-07-08] MEDS: SERTRALINE 100 MG TAB PO SCH (08:57)
[2017-07-08] MEDS: ASPIRIN (EC) 325 MG TAB PO SCH ×2 (08:57→21:04)
[2017-07-08] MEDS: SENNA/DOCUSATE NA (8.6MG/50MG) TAB PO PRN (08:57)
[2017-07-08] MEDS: AMLODIPINE 10 MG TAB PO SCH (08:57)
[2017-07-08] MEDS: FERROUS FUMARATE (SR) TAB PO SCH ×2 (08:57→21:04)
[2017-07-08] MEDS: CHLORTHALIDONE 25 MG TAB PO SCH (08:58)
--- NOTE | 2017-07-08 09:12 | PN ---
Date/Time of Note Date/Time of Note DATE: 07/08/17 TIME: 09:09 Assessment/Plan VTE Prophylaxis VTE Prophylaxis Intervention: ambulation, SCD's, other (Aspirin 325 mg) Lines/Catheters IV Catheter Type (from Nrsg): Peripheral IV Killian in Place (from Nrsg): No Assessment/Plan Assessment/Plan -Dress change provided today. Reapplication of Steri-Strips to the proximal and middle third of the wound. -Pain Meds as needed -ASA for DVT Prophylaxis x 6 weeks outpatient discussed. -Continue monitoring as outpatient on discharge -Follow-up at scheduled postop outpatient appointment or sooner if there is any issue. -Patient Stable -Discharge to ARU versus SNF as patient lives in mobile home and has to walk across the street to local facility to take showers. Patient is to have increased risk of injury immediately after discharge from hospital and therefore continued monitoring at acute rehab facility versus assisted facility for ongoing therapy and environment that will reduce potential injury as well as infection. Subjective 24 Hr Interval Summary 62-year-old male postop day 3 status post right total knee arthroplasty. Patient has been up and walking. Patient had some bleeding from surgical site. Was reinforced with dressing. Denies any calf pain. Denies any chest pain/ tightness or shortness of breath. Resting comfortably in bed with pillows under the foot/ankle and leg in full extension. Constitutional: no complaints Pain Control: well controlled Exam/Review of Systems Vital Signs Vitals Vital Signs Date Time Temp Pulse Resp B/P Pulse Ox O2 Delivery O2 Flow Rate FiO2 07/08/17 08:02 97.7 57 18 154/99 97 07/05/17 20:00 Nasal Cannula 2.0 Intake and Output 07/07/17 07/07/17 07/08/17 15:00 23:00 07:00 Intake Total 250 ml 550 ml Output Total 1200 ml Balance 250 ml -650 ml Exam Free Text/Dictation -No active bleeding currently. Previous bleeding to the proximal and middle third of the surgical wound. Steri-Strips to the distal wound remain intact. No signs of infection. No discharge. -5/5 Tibialis Anterior, EHL Gastrocnemius/Soleus and Peroneals -Normal Sensation -Palpable DP/PT, Capillary Refill <2 secs -No Distal Edema -Negative Kiley Sign/No calf pain -Toes Freely Movable Constitutional: alert, oriented, well developed Results Result Diagram: 07/08/17 0430 07/07/17 0445 GABRIELE ROSS PA-C Jul 08, 2017 09:12
[2017-07-08] MEDS: LOSARTAN 50 MG TAB PO SCH (10:31)
--- NOTE | 2017-07-08 11:27 | PN ---
Date/Time of Note Date/Time of Note DATE: 07/08/17 TIME: 11:27 Assessment/Plan VTE Prophylaxis VTE Prophylaxis Intervention: ambulation Lines/Catheters IV Catheter Type (from Nrs): Peripheral IV Urinary Cath still in place: No Assessment/Plan Chief Complaint/Hosp Course Patient is a 62-year-old male presenting for elective right knee total and we need placement Assessment and plan Total right knee replacement Hypertension GERD Chronic pancreatitis Hypertension Depression Osteoarthritis -Management per orthopedics -Restart home meds as able -Pain control -PT/OT DISPO: Patient may need PT/OT inpatient due to living alone in [facility] when okay with ortho, rejected by ARU, searching for other rehab Problems: Subjective 24 Hr Interval Summary Free Text/Dictation no acute changes Exam/Review of Systems Vital Signs Vitals Vital Signs Date Time Temp Pulse Resp B/P Pulse Ox O2 Delivery O2 Flow Rate FiO2 07/08/17 08:02 97.7 57 18 154/99 97 07/05/17 20:00 Nasal Cannula 2.0 Intake and Output 07/07/17 07/07/17 07/08/17 15:00 23:00 07:00 Intake Total 250 ml 550 ml Output Total 1200 ml Balance 250 ml -650 ml Exam Physical exam General: Patient is laying in bed and answers questions appropriately Mentation: Patient is alert and oriented 4, Head: Normocephalic atraumatic Eyes: EOMI, pupils reactive to light Neck: Supple, nontender, midline Respiratory: Clear to auscultation bilaterally Cardiovascular: regular rate, no obvious murmurs Gastrointestinal: non-tender to palpation, bowel sounds heard. Neurological: Moves all extremities spontaneously Skin: No new skin lesions Results Result Diagram: 07/08/17 0430 07/07/17 0445 Results 24 hrs Laboratory Tests Test 07/08/17 04:30 White Blood Count 10.2 Red Blood Count 3.43 L Hemoglobin 10.2 L Hematocrit 30.3 L Mean Corpuscular Volume 88.3 Mean Corpuscular Hemoglobin 29.7 Mean Corpuscular Hemoglobin Concent 33.7 Red Cell Distribution Width 13.6 Platelet Count 135 L Mean Platelet Volume 11.4 H Neutrophils % 74.8 Lymphocytes % 16.7 Monocytes % 6.4 Eosinophils % 1.0 Basophils % 0.3 Nucleated Red Blood Cells % 0.0 Neutrophils # 7.6 H Lymphocytes # 1.7 Monocytes # 0.7 Eosinophils # 0.1 Basophils # 0.0 Nucleated Red Blood Cells # 0.0 Medications Medications Current Medications Lactated Ringer's (Lr) 1,000 ml @ 0 mls/hr Q0M IV* ; Start 07/04/17 at 06:00 Oxycodone HCl (Roxicodone) 20 mg Q3H PRN PO PAIN LEVEL 8-10 Last administered on 07/07/17 13:04; Admin Dose 20 MG; Start 07/04/17 at 15:30 Oxycodone HCl (Roxicodone) 10 mg Q3H PRN PO PAIN LEVEL 4-7 Last administered on 07/08/17 08:58; Admin Dose 10 MG; Start 07/05/17 at 09:00 Oxycodone HCl (Roxicodone) 5 mg Q3H PRN PO PAIN LEVEL 1-3 Last administered on 07/05/17 23:44; Admin Dose 5 MG; Start 07/05/17 at 09:00 Zolpidem Tartrate (Ambien) 5 mg HS PRN PO INSOMNIA; Start 07/04/17 at 15:30 Miscellaneous Information (Note) NOTE XX ; Start 07/04/17 at 15:30 Aspirin (Ecotrin) 325 mg BID PO Last administered on 07/08/17 08:57; Admin Dose 325 MG; Start 07/05/17 at 09:00 Celecoxib (Celebrex) 200 mg BID PO Last administered on 07/08/17 08:57; Admin Dose 200 MG; Start 07/05/17 at 09:00 Pantoprazole (Protonix Tab) 40 mg DAILY@06 PO Last administered on 07/08/17 06:08; Admin Dose 40 MG; Start 07/06/17 at 06:00 Docusate Sodium/ Ferrous Fumarate (Leonel-Sequels) 1 tab BID PO Last administered on 07/08/17 08:57; Admin Dose 1 TAB; Start 07/05/17 at 09:00 Simethicone (Mylicon) 80 mg TID PRN PO DISTENSION/GAS/BLOATING; Start 07/04/17 at 15:30 Senna/Docusate Sodium (Senokot-S) 2 tab BID PRN PO CONSTIPATION Last administered on 07/08/17 08:57; Admin Dose 2 TAB; Start 07/04/17 at 15:30 Magnesium Hydroxide (Milk Of Mag) 30 ml HS PRN PO CONSTIPATION; Start 07/04/17 at 15:30 Bisacodyl (Dulcolax Supp) 10 mg DAILY PRN [place] CONSTIPATION; Start 07/04/17 at 15 :30 Sodium Biphosphate/ Sodium Phosphate (Fleet Enema) 133 ml DAILY PRN [place] CONSTIPATION; Start 07/04/17 at 15:30 Diphenhydramine HCl (Benadryl) 25 mg Q4H PRN IM ITCHING OR RASH; Start at 15:30 Bupivacaine HCl/ Epinephrine Bitart (Marcaine 0.25%/ Epi (Sdv) 30 ml) 20 ml DAILY@06 PRN INJ ADMINSTER BY SURGEON ONLY; Start 07/05/17 at 06:00; Stop 07/15 at 05:59 Naloxone HCl (Narcan) 0.2 mg Q2M PRN IV DECREASED REPIRATORY RATE; Start at 15:30 Losartan Potassium (Cozaar) 100 mg DAILY PO Last administered on 07/08/17 10: 31; Admin Dose 100 MG; Start 07/05/17 at 09:00 Amlodipine Besylate (Norvasc) 10 mg DAILY PO Last administered on 07/08/17 08 :57; Admin Dose 10 MG; Start 07/05/17 at 09:00 Chlorthalidone (Hygroton) 25 mg DAILY PO Last administered on 07/08/17 08:58 ; Admin Dose 25 MG; Start 07/05/17 at 09:00 Sertraline HCl (Zoloft) 100 mg DAILY PO Last administered on 07/08/17 08:57; Admin Dose 100 MG; Start 07/05/17 at 09:00 Trazodone HCl (Desyrel) 100 mg HS PO Last administered on 07/07/17 21:23; Admin Dose 100 MG; Start 07/04/17 at 21:00 Atorvastatin Calcium (Lipitor) 40 mg DAILY@21 PO Last administered on 21:24; Admin Dose 40 MG; Start 07/04/17 at 21:00 Oxycodone/ Acetaminophen (Endocet (10/ 325)) 1 tab Q4H PRN PO BREAKTHROUGH PAIN Last administered on 07/08/17 02:48; Admin Dose 1 TAB; Start 07/04/17 at 20:00 Oxycodone/ Acetaminophen (Percocet (5/ 325)) 1 tab Q4H PRN PO PAIN 4-6 Last administered on 07/07/17t 22:13; Admin Dose 1 TAB; Start 07/04/17 at 20:00 Acetaminophen (Tylenol Tab) 325 mg Q6H PRN PO FEVER/ PAIN 1-3; Start 07/04/17 at 20:00 MARYURI SÁNCHEZ Jul 08, 2017 11:27
[2017-07-08 14:04] VITALS: BP 125/75; RESP 18
[2017-07-08 20:05] VITALS: BP 132/70; PULSE 72; RESP 18
[2017-07-08 20:30] VITALS: BP 138/78; RESP 20
[2017-07-08] MEDS: ATORVASTATIN 40 MG TAB PO SCH (21:04)
[2017-07-08] MEDS: traZODone 100 MG TAB PO SCH (21:04)
[2017-07-09 03:20] VITALS: BP 132/75; RESP 19
[2017-07-09] MEDS: PANTOPRAZOLE (EC) 40 MG TAB PO SCH (05:31)
[2017-07-09 05:54] LABS: BASOPHILS % 0.4 % (0.0-2.0); EOSINOPHILS # 0.4 10^3/ul (0.0-0.5); EOSINOPHILS % 4.3 % (0.0-7.0); HEMATOCRIT 32.6 % (42.0-52.0); HEMOGLOBIN 11.2 g/dl (14.0-18.0); LYMPHOCYTES # 1.9 10^3/ul (0.8-2.9); LYMPHOCYTES % 21.2 % (15.0-51.0); MEAN CORPUSCULAR HEMOGLOBIN 30.7 pg (29.0-33.0); MEAN CORPUSCULAR HGB CONC 34.4 g/dl (32.0-37.0); MEAN CORPUSCULAR VOLUME 89.3 fl (82.0-101.0); MEAN PLATELET VOLUME 11.8 fl (7.4-10.4); MONOCYTE # 0.6 10^3/ul (0.3-0.9); MONOCYTES % 6.1 % (0.0-11.0); NEUTROPHIL # 6.1 10^3/ul (1.6-7.5); NEUTROPHILS % 67.1 % (39.0-77.0); PLATELET COUNT 160 10^3/UL (140-415); RED BLOOD COUNT 3.65 10^6/ul (4.70-6.10); RED CELL DISTRIBUTION WIDTH 13.5 % (11.5-14.5)
[2017-07-09 06:29] LABS: CALCIUM 8.8 mg/dl (8.4-10.2); CREATININE 1.11 mg/dl (0.61-1.24); MAGNESIUM 1.9 mg/dl (1.7-2.5); PHOSPHORUS 4.9 mg/dl (2.5-4.9); POTASSIUM 3.7 mmol/L (3.5-5.1)
--- NOTE | 2017-07-09 07:33 | PN ---
Date/Time of Note Date/Time of Note DATE: 07/09/17 TIME: 07:29 Assessment/Plan VTE Prophylaxis VTE Prophylaxis Intervention: ambulation, SCD's, other (Aspirin 325 mg) Lines/Catheters IV Catheter Type (from Nrsg): Saline Lock Killian in Place (from Nrsg): No Assessment/Plan Assessment/Plan -Pain Meds as needed -ASA for DVT Prophylaxis x 6 weeks outpatient discussed. -Continue monitoring as outpatient on discharge -Follow-up at scheduled postop outpatient appointment or sooner if there is any issue. -Patient Stable -Discharge to SNF Subjective 24 Hr Interval Summary 62-year-old male postop day 4 status post right total knee arthroplasty. No acute events overnight. Pain is well controlled. Patient resting comfortably in bed with leg in full extension and 2 pillows under the foot/ankle. Denies any falls or injury. Continues with physical therapy in regards to weightbearing as well as range of motion. Currently, awaiting [facility] from [facility] as patient has been denied acute rehab unit. Patient lives through mobile home and home health is unable to accommodate/provide services throughout mobile home in regards to home physical therapy. Pain Control: well controlled Exam/Review of Systems Vital Signs Vitals Vital Signs Date Time Temp Pulse Resp B/P Pulse Ox O2 Delivery O2 Flow Rate FiO2 07/09/17 03:20 98.6 75 19 132/75 97 07/08/17 20:05 Room Air 07/05/17 20:00 2.0 Intake and Output 07/08/17 07/08/17 07/09/17 15:00 23:00 07:00 Intake Total 1010 ml 1200 ml Output Total 1610 ml 1000 ml Balance -600 ml 200 ml Exam Free Text/Dictation -No complications with dressing intact. -5/5 Tibialis Anterior, EHL Gastrocnemius/Soleus and Peroneals -Normal Sensation -Palpable DP/PT, Capillary Refill <2 secs -No Distal Edema -Negative Kiley Sign/No calf pain -Toes Freely Movable Results Result Diagram: 07/09/17 0428 07/09/17 0428 GABRIELE ROSS PA-C Jul 09, 2017 07:33
[2017-07-09 07:34] VITALS: BP 119/74; RESP 20
[2017-07-09 07:52] VITALS: BP 168/103; RESP 18
[2017-07-09] MEDS: AMLODIPINE 10 MG TAB PO SCH (08:18)
[2017-07-09] MEDS: CHLORTHALIDONE 25 MG TAB PO SCH (08:18)
[2017-07-09] MEDS: FERROUS FUMARATE (SR) TAB PO SCH ×2 (08:18→21:05)
[2017-07-09] MEDS: CELECOXIB 200 MG CAP PO SCH ×2 (08:18→21:05)
[2017-07-09] MEDS: ASPIRIN (EC) 325 MG TAB PO SCH ×2 (08:18→21:05)
[2017-07-09] MEDS: LOSARTAN 50 MG TAB PO SCH (08:19)
[2017-07-09] MEDS: SERTRALINE 100 MG TAB PO SCH (08:19)
[2017-07-09] MEDS: oxyCODONE 5 MG TAB PO PRN ×3 (08:19→21:06)
[2017-07-09 14:30] VITALS: BP 125/81; RESP 18
--- NOTE | 2017-07-09 17:33 | PN ---
Date/Time of Note Date/Time of Note DATE: 07/09/17 TIME: 17:28 Assessment/Plan VTE Prophylaxis VTE Prophylaxis Intervention: other Lines/Catheters IV Catheter Type (from Nrs): Saline Lock Urinary Cath still in place: No Assessment/Plan Assessment/Plan 1. Total right knee replacement - Ortho on board and recommending discharge to SNF - [place] and does not feel as if he can care for himself. - will need to continue on aspirin for 6 weeks for DVT prophylaxis 2. Hypertension - stable. continue current medications 3. GERD - PPI 4. Chronic pancreatitis - stable 5. Depression - in good spirits. stable 7. Osteoarthritis 8. Disposition - Per Ortho recommendations - SNF placement Subjective 24 Hr Interval Summary Free Text/Dictation patient denies any new complaints. Does not feel as if can care for himself at home given he lives alone. No acute overnight events. Exam/Review of Systems Vital Signs Vitals Vital Signs Date Time Temp Pulse Resp B/P Pulse Ox O2 Delivery O2 Flow Rate FiO2 07/09/17 14:30 98.6 75 18 125/81 98 07/08/17 20:05 Room Air 07/05/17 20:00 2.0 Intake and Output 07/08/17 07/08/17 07/09/17 14:59 22:59 06:59 Intake Total 1010 ml 1200 ml Output Total 1610 ml 1000 ml Balance -600 ml 200 ml Exam General: Patient is laying in bed and answers questions appropriately Mentation: Patient is alert and oriented 4, Head: Normocephalic atraumatic Eyes: EOMI, pupils reactive to light Neck: Supple, nontender, midline Respiratory: Clear to auscultation bilaterally Cardiovascular: regular rate, no obvious murmurs Gastrointestinal: non-tender to palpation, bowel sounds heard. Neurological: Moves all extremities spontaneously, left knee bandaged Skin: No new skin lesions Results Result Diagram: 07/09/1742707/09/17427 Results 24 hrs Laboratory Tests Test 07/09/17 04:28 White Blood Count 9.0 Red Blood Count 3.65 L Hemoglobin 11.2 L Hematocrit 32.6 L Mean Corpuscular Volume 89.3 Mean Corpuscular Hemoglobin 30.7 Mean Corpuscular Hemoglobin Concent 34.4 Red Cell Distribution Width 13.5 Platelet Count 160 Mean Platelet Volume 11.8 H Neutrophils % 67.1 Lymphocytes % 21.2 Monocytes % 6.1 Eosinophils % 4.3 Basophils % 0.4 Nucleated Red Blood Cells % 0.0 Neutrophils # 6.1 Lymphocytes # 1.9 Monocytes # 0.6 Eosinophils # 0.4 Basophils # 0.0 Nucleated Red Blood Cells # 0.0 Sodium Level 144 Potassium Level 3.7 Chloride Level 102 Carbon Dioxide Level 32 H Anion Gap 14 Blood Urea Nitrogen 21 H Creatinine 1.11 Glucose Level 105 Calcium Level 8.8 Phosphorus Level 4.9 Magnesium Level 1.9 Medications Medications Current Medications Lactated Ringer's (Lr) 1,000 ml @ 0 mls/hr Q0M IV* ; Start 07/04/17 at 06:00 Oxycodone HCl (Roxicodone) 20 mg Q3H PRN PO PAIN LEVEL 8-10 Last administered on 07/09/17 16:13; Admin Dose 20 MG; Start 07/04/17 at 15:30 Oxycodone HCl (Roxicodone) 10 mg Q3H PRN PO PAIN LEVEL 4-7 Last administered on 07/08/17 16:40; Admin Dose 10 MG; Start 07/05/17 at 09:00 Oxycodone HCl (Roxicodone) 5 mg Q3H PRN PO PAIN LEVEL 1-3 Last administered on 07/05/17 23:44; Admin Dose 5 MG; Start 07/05/17 at 09:00 Zolpidem Tartrate (Ambien) 5 mg HS PRN PO INSOMNIA; Start 07/04/17 at 15:30 Miscellaneous Information (Note) NOTE XX ; Start 07/04/17 at 15:30 Aspirin (Ecotrin) 325 mg BID PO Last administered on 07/09/17 08:18; Admin Dose 325 MG; Start 07/05/17 at 09:00 Celecoxib (Celebrex) 200 mg BID PO Last administered on 07/09/17 08:18; Admin Dose 200 MG; Start 07/05/17 at 09:00 Pantoprazole (Protonix Tab) 40 mg DAILY@06 PO Last administered on 07/09/17 05:31; Admin Dose 40 MG; Start 07/06/17 at 06:00 Docusate Sodium/ Ferrous Fumarate (Leonel-Sequels) 1 tab BID PO Last administered on 07/09/17 08:18; Admin Dose 1 TAB; Start 07/05/17 at 09:00 Simethicone (Mylicon) 80 mg TID PRN PO DISTENSION/GAS/BLOATING; Start 07/04/17 at 15:30 Senna/Docusate Sodium (Senokot-S) 2 tab BID PRN PO CONSTIPATION Last administered on 07/08/17 08:57; Admin Dose 2 TAB; Start 07/04/17 at 15:30 Magnesium Hydroxide (Milk Of Mag) 30 ml HS PRN PO CONSTIPATION; Start 07/04/17 at 15:30 Bisacodyl (Dulcolax Supp) 10 mg DAILY PRN [place] CONSTIPATION Last administered on 07/08/17 16:40; Admin Dose 10 MG; Start 07/04/17 at 15:30 Sodium Biphosphate/ Sodium Phosphate (Fleet Enema) 133 ml DAILY PRN [place] CONSTIPATION; Start 07/04/17 at 15:30 Diphenhydramine HCl (Benadryl) 25 mg Q4H PRN IM ITCHING OR RASH; Start at 15:30 Naloxone HCl (Narcan) 0.2 mg Q2M PRN IV DECREASED REPIRATORY RATE; Start at 15:30 Losartan Potassium (Cozaar) 100 mg DAILY PO Last administered on 07/09/17 08: 19; Admin Dose 100 MG; Start 07/05/17 at 09:00 Amlodipine Besylate (Norvasc) 10 mg DAILY PO Last administered on 07/09/17 08 :18; Admin Dose 10 MG; Start 07/05/17 at 09:00 Chlorthalidone (Hygroton) 25 mg DAILY PO Last administered on 07/09/17 08:18 ; Admin Dose 25 MG; Start 07/05/17 at 09:00 Sertraline HCl (Zoloft) 100 mg DAILY PO Last administered on 07/09/17 08:19; Admin Dose 100 MG; Start 07/05/17 at 09:00 Trazodone HCl (Desyrel) 100 mg HS PO Last administered on 07/08/17 21:04; Admin Dose 100 MG; Start 07/04/17 at 21:00 Atorvastatin Calcium (Lipitor) 40 mg DAILY@21 PO Last administered on 21:04; Admin Dose 40 MG; Start 07/04/17 at 21:00 Oxycodone/ Acetaminophen (Endocet (10/ 325)) 1 tab Q4H PRN PO BREAKTHROUGH PAIN Last administered on 07/08/17 15:36; Admin Dose 1 TAB; Start 07/04/17 at 20:00 Oxycodone/ Acetaminophen (Percocet (5/ 325)) 1 tab Q4H PRN PO PAIN 4-6 Last administered on 07/07/17 22:13; Admin Dose 1 TAB; Start 07/04/17 at 20:00 Acetaminophen (Tylenol Tab) 325 mg Q6H PRN PO FEVER/ PAIN 1-3; Start 07/04/17 at 20:00 CHUY LIM MD Jul 09, 2017 17:32
[2017-07-09 19:46] VITALS: BP 123/80; PULSE 74; RESP 18
[2017-07-09] MEDS: ATORVASTATIN 40 MG TAB PO SCH (21:05)
[2017-07-09] MEDS: traZODone 100 MG TAB PO SCH (21:05)
[2017-07-10 05:11] LABS: BASOPHIL # 0.1 10^3/ul (0.0-0.1); BASOPHILS % 0.5 % (0.0-2.0); EOSINOPHILS # 0.5 10^3/ul (0.0-0.5); EOSINOPHILS % 5.1 % (0.0-7.0); HEMATOCRIT 32.4 % (42.0-52.0); HEMOGLOBIN 11.1 g/dl (14.0-18.0); LYMPHOCYTES # 1.6 10^3/ul (0.8-2.9); LYMPHOCYTES % 16.5 % (15.0-51.0); MEAN CORPUSCULAR HEMOGLOBIN 30.2 pg (29.0-33.0); MEAN CORPUSCULAR HGB CONC 34.3 g/dl (32.0-37.0); MEAN CORPUSCULAR VOLUME 88.3 fl (82.0-101.0); MEAN PLATELET VOLUME 11.5 fl (7.4-10.4); MONOCYTE # 0.6 10^3/ul (0.3-0.9); MONOCYTES % 6.4 % (0.0-11.0); NEUTROPHIL # 6.7 10^3/ul (1.6-7.5); NEUTROPHILS % 70.8 % (39.0-77.0); PLATELET COUNT 172 10^3/UL (140-415); RED BLOOD COUNT 3.67 10^6/ul (4.70-6.10); RED CELL DISTRIBUTION WIDTH 13.6 % (11.5-14.5); WHITE BLOOD COUNT 9.4 10^3/ul (4.8-10.8)
[2017-07-10] MEDS: PANTOPRAZOLE (EC) 40 MG TAB PO SCH (05:56)
[2017-07-10 07:38] VITALS: BP 155/85; RESP 20
[2017-07-10 08:33] VITALS: BP 159/90; PULSE 80; RESP 16
[2017-07-10] MEDS: CELECOXIB 200 MG CAP PO SCH ×2 (08:41→20:17)
[2017-07-10] MEDS: FERROUS FUMARATE (SR) TAB PO SCH ×2 (08:41→20:17)
[2017-07-10] MEDS: SERTRALINE 100 MG TAB PO SCH (08:41)
[2017-07-10] MEDS: AMLODIPINE 10 MG TAB PO SCH (08:42)
[2017-07-10] MEDS: LOSARTAN 50 MG TAB PO SCH (08:42)
[2017-07-10] MEDS: ASPIRIN (EC) 325 MG TAB PO SCH ×2 (08:43→20:17)
[2017-07-10] MEDS: CHLORTHALIDONE 25 MG TAB PO SCH (08:43)
[2017-07-10] MEDS: oxyCODONE 5 MG TAB PO PRN ×2 (08:43→19:40)
--- NOTE | 2017-07-10 09:17 | PN ---
Date/Time of Note Date/Time of Note DATE: 07/10/17 TIME: 09:15 Assessment/Plan VTE Prophylaxis VTE Prophylaxis Intervention: ambulation, SCD's, other (Aspirin 325 mg) Lines/Catheters IV Catheter Type (from Nrsg): Saline Lock Killian in Place (from Nrsg): No Assessment/Plan Assessment/Plan -Pain Meds as needed -ASA for DVT Prophylaxis x 6 weeks outpatient discussed. -Continue monitoring as outpatient on discharge -Follow-up at scheduled postop outpatient appointment or sooner if there is any issue. -Patient Stable -Discharge to SNF Subjective 24 Hr Interval Summary 62-year-old male postop day 5 status post right total knee arthroplasty. No acute events overnight. No pain complaints. Continue to await approval from long term facility as patient lives in a mobile home. Pain Control: well controlled Exam/Review of Systems Vital Signs Vitals Vital Signs Date Time Temp Pulse Resp B/P Pulse Ox O2 Delivery O2 Flow Rate FiO2 07/10/17 08:33 80 16 159/90 95 Room Air 80 07/10/17 07:38 98.4 Intake and Output 07/09/17 07/09/17 07/10/17 15:00 23:00 07:00 Intake Total 860 ml 1000 ml Output Total 1100 ml 1100 ml Balance -240 ml -100 ml Exam Free Text/Dictation -No complications with dressing intact. -5/5 Tibialis Anterior, EHL Gastrocnemius/Soleus and Peroneals -Normal Sensation -Palpable DP/PT, Capillary Refill <2 secs -No Distal Edema -Negative Kiley Sign/No calf pain -Toes Freely Movable Constitutional: alert, oriented, well developed Results Result Diagram: 07/10/17 0443 07/09/17 0428 GABRIELE ROSS PA-C Jul 10, 2017 09:17
--- NOTE | 2017-07-10 11:09 | PN ---
Date/Time of Note Date/Time of Note DATE: 07/10/17 TIME: 11:09 Assessment/Plan VTE Prophylaxis VTE Prophylaxis Intervention: other Lines/Catheters IV Catheter Type (from Nrs): Saline Lock Urinary Cath still in place: No Assessment/Plan Assessment/Plan 1. Total right knee replacement - Ortho on board and recommending discharge to SNF - [place] and does not feel as if he can care for himself. - will need to continue on aspirin for 6 weeks for DVT prophylaxis - PT 2. Hypertension - stable. continue current medications 3. GERD - PPI 4. Chronic pancreatitis - stable 5. Depression - stable 7. Osteoarthritis 8. Disposition - Per Ortho recommendations - SNF placement pending Subjective 24 Hr Interval Summary Free Text/Dictation Patient doing well and states does experiencing some pain in right knee but able to ambulate better with physical therapy. Still awaiting SNF placement Exam/Review of Systems Vital Signs Vitals Vital Signs Date Time Temp Pulse Resp B/P Pulse Ox O2 Delivery O2 Flow Rate FiO2 07/10/17 08:33 80 16 159/90 95 Room Air 80 07/10/17 07:38 98.4 Intake and Output 07/09/17 07/09/17 07/10/17 14:59 22:59 06:59 Intake Total 860 ml 1000 ml Output Total 1100 ml 1100 ml Balance -240 ml -100 ml Exam General: Patient in no acute distress, laying in bed and answers questions appropriately Mentation: Patient is alert and oriented 4, Head: Normocephalic atraumatic Eyes: EOMI, pupils reactive to light Neck: Supple, nontender, midline Respiratory: Clear to auscultation bilaterally Cardiovascular: regular rate, no obvious murmurs Gastrointestinal: non-tender to palpation, bowel sounds heard. Neurological: Moves all extremities spontaneously, left knee bandaged, pulses intact Results Result Diagram: 07/10/17 0443 07/09/17 0428 Results 24 hrs Laboratory Tests Test 07/10/17 04:43 White Blood Count 9.4 Red Blood Count 3.67 L Hemoglobin 11.1 L Hematocrit 32.4 L Mean Corpuscular Volume 88.3 Mean Corpuscular Hemoglobin 30.2 Mean Corpuscular Hemoglobin Concent 34.3 Red Cell Distribution Width 13.6 Platelet Count 172 Mean Platelet Volume 11.5 H Neutrophils % 70.8 Lymphocytes % 16.5 Monocytes % 6.4 Eosinophils % 5.1 Basophils % 0.5 Nucleated Red Blood Cells % 0.0 Neutrophils # 6.7 Lymphocytes # 1.6 Monocytes # 0.6 Eosinophils # 0.5 Basophils # 0.1 Nucleated Red Blood Cells # 0.0 Medications Medications Current Medications Lactated Ringer's (Lr) 1,000 ml @ 0 mls/hr Q0M IV* ; Start 07/04/17 at 06:00 Oxycodone HCl (Roxicodone) 20 mg Q3H PRN PO PAIN LEVEL 8-10 Last administered on 07/10/17 08:43; Admin Dose 20 MG; Start 07/04/17 at 15:30 Oxycodone HCl (Roxicodone) 10 mg Q3H PRN PO PAIN LEVEL 4-7 Last administered on 07/08/17 16:40; Admin Dose 10 MG; Start 07/05/17 at 09:00 Oxycodone HCl (Roxicodone) 5 mg Q3H PRN PO PAIN LEVEL 1-3 Last administered on 07/05/17 23:44; Admin Dose 5 MG; Start 07/05/17 at 09:00 Zolpidem Tartrate (Ambien) 5 mg HS PRN PO INSOMNIA; Start 07/04/17 at 15:30 Miscellaneous Information (Note) NOTE XX ; Start 07/04/17 at 15:30 Aspirin (Ecotrin) 325 mg BID PO Last administered on 07/10/17 08:43; Admin Dose 325 MG; Start 07/05/17 at 09:00 Celecoxib (Celebrex) 200 mg BID PO Last administered on 07/10/17 08:41; Admin Dose 200 MG; Start 07/05/17 at 09:00 Pantoprazole (Protonix Tab) 40 mg DAILY@06 PO Last administered on 07/10/17 05:56; Admin Dose 40 MG; Start 07/06/17 at 06:00 Docusate Sodium/ Ferrous Fumarate (Leonel-Sequels) 1 tab BID PO Last administered on 07/10/17 08:41; Admin Dose 1 TAB; Start 07/05/17 at 09:00 Simethicone (Mylicon) 80 mg TID PRN PO DISTENSION/GAS/BLOATING; Start 07/04/17 at 15:30 Senna/Docusate Sodium (Senokot-S) 2 tab BID PRN PO CONSTIPATION Last administered on 07/08/17 08:57; Admin Dose 2 TAB; Start 07/04/17 at 15:30 Magnesium Hydroxide (Milk Of Mag) 30 ml HS PRN PO CONSTIPATION; Start 07/04/17 at 15:30 Bisacodyl (Dulcolax Supp) 10 mg DAILY PRN [place] CONSTIPATION Last administered on 07/08/17 16:40; Admin Dose 10 MG; Start 07/04/17 at 15:30 Sodium Biphosphate/ Sodium Phosphate (Fleet Enema) 133 ml DAILY PRN [place] CONSTIPATION; Start 07/04/17 at 15:30 Diphenhydramine HCl (Benadryl) 25 mg Q4H PRN IM ITCHING OR RASH; Start at 15:30 Naloxone HCl (Narcan) 0.2 mg Q2M PRN IV DECREASED REPIRATORY RATE; Start at 15:30 Losartan Potassium (Cozaar) 100 mg DAILY PO Last administered on 07/10/17 08: 42; Admin Dose 100 MG; Start 07/05/17 at 09:00 Amlodipine Besylate (Norvasc) 10 mg DAILY PO Last administered on 07/10/17 08 :42; Admin Dose 10 MG; Start 07/05/17 at 09:00 Chlorthalidone (Hygroton) 25 mg DAILY PO Last administered on 07/10/17 08:43 ; Admin Dose 25 MG; Start 07/05/17 at 09:00 Sertraline HCl (Zoloft) 100 mg DAILY PO Last administered on 07/10/17 08:41; Admin Dose 100 MG; Start 07/05/17 at 09:00 Trazodone HCl (Desyrel) 100 mg HS PO Last administered on 07/09/17 21:05; Admin Dose 100 MG; Start 07/04/17 at 21:00 Atorvastatin Calcium (Lipitor) 40 mg DAILY@21 PO Last administered on 21:05; Admin Dose 40 MG; Start 07/04/17 at 21:00 Oxycodone/ Acetaminophen (Endocet (10/ 325)) 1 tab Q4H PRN PO BREAKTHROUGH PAIN Last administered on 07/08/17 15:36; Admin Dose 1 TAB; Start 07/04/17 at 20:00 Oxycodone/ Acetaminophen (Percocet (5/ 325)) 1 tab Q4H PRN PO PAIN 4-6 Last administered on 07/07/17t 22:13; Admin Dose 1 TAB; Start 07/04/17 at 20:00 Acetaminophen (Tylenol Tab) 325 mg Q6H PRN PO FEVER/ PAIN 1-3; Start 07/04/17 at 20:00 CUHY LIM MD Jul 10, 2017 11:09
[2017-07-10 15:16] VITALS: BP 129/78; RESP 20
[2017-07-10 19:42] VITALS: BP 131/86; RESP 18
[2017-07-10] MEDS: traZODone 100 MG TAB PO SCH (20:17)
[2017-07-10] MEDS: ATORVASTATIN 40 MG TAB PO SCH (20:17)
[2017-07-11 02:38] VITALS: BP 129/80; RESP 18
[2017-07-11] MEDS: oxyCODONE 5 MG TAB PO PRN ×4 (02:53→18:33)
[2017-07-11 06:16] LABS: BASOPHILS % 0.4 % (0.0-2.0); EOSINOPHILS # 0.5 10^3/ul (0.0-0.5); EOSINOPHILS % 5.2 % (0.0-7.0); HEMATOCRIT 33.7 % (42.0-52.0); HEMOGLOBIN 11.5 g/dl (14.0-18.0); LYMPHOCYTES # 1.6 10^3/ul (0.8-2.9); LYMPHOCYTES % 16.1 % (15.0-51.0); MEAN CORPUSCULAR HEMOGLOBIN 30.1 pg (29.0-33.0); MEAN CORPUSCULAR HGB CONC 34.1 g/dl (32.0-37.0); MEAN CORPUSCULAR VOLUME 88.2 fl (82.0-101.0); MEAN PLATELET VOLUME 11.6 fl (7.4-10.4); MONOCYTE # 0.7 10^3/ul (0.3-0.9); MONOCYTES % 7.5 % (0.0-11.0); NEUTROPHIL # 6.8 10^3/ul (1.6-7.5); PLATELET COUNT 181 10^3/UL (140-415); RED BLOOD COUNT 3.82 10^6/ul (4.70-6.10); RED CELL DISTRIBUTION WIDTH 13.2 % (11.5-14.5); WHITE BLOOD COUNT 9.8 10^3/ul (4.8-10.8)
[2017-07-11] MEDS: PANTOPRAZOLE (EC) 40 MG TAB PO SCH (06:34)
[2017-07-11 07:37] VITALS: BP 143/76; RESP 19
[2017-07-11] MEDS: SERTRALINE 100 MG TAB PO SCH (09:03)
[2017-07-11] MEDS: CHLORTHALIDONE 25 MG TAB PO SCH (09:03)
[2017-07-11] MEDS: CELECOXIB 200 MG CAP PO SCH ×2 (09:03→20:23)
[2017-07-11] MEDS: AMLODIPINE 10 MG TAB PO SCH (09:03)
[2017-07-11] MEDS: FERROUS FUMARATE (SR) TAB PO SCH ×2 (09:03→20:23)
[2017-07-11] MEDS: ASPIRIN (EC) 325 MG TAB PO SCH ×2 (09:03→20:23)
[2017-07-11] MEDS: LOSARTAN 50 MG TAB PO SCH (09:04)
--- NOTE | 2017-07-11 09:51 | PN ---
Date/Time of Note Date/Time of Note DATE: 07/11/17 TIME: 09:51 Assessment/Plan VTE Prophylaxis VTE Prophylaxis Intervention: SCD's Lines/Catheters IV Catheter Type (from [facility]): Saline Lock Urinary Cath still in place: No Assessment/Plan Assessment/Plan 1. Total right knee replacement - Ortho on board and recommending follow up as outpatient for postop or sooner if needed. Continue on aspirin for 6 weeks. - Patient [place] and does not feel as if he can care for himself. - PT 2. Hypertension - stable. continue current medications 3. GERD - PPI 4. Chronic pancreatitis - stable 5. Depression - stable 7. Osteoarthritis 8. Disposition - Per Ortho recommendations - SNF placement pending Subjective 24 Hr Interval Summary Free Text/Dictation Patient doing well and states feeling more comfortably walking with physical therapy. However, is still having difficulty walking up stairs and would not be able to get up into his RV. No acute overnight events. Exam/Review of Systems Vital Signs Vitals Vital Signs Date Time Temp Pulse Resp B/P Pulse Ox O2 Delivery O2 Flow Rate FiO2 07/11/17 07:37 98.2 63 19 143/76 98 07/10/17 08:33 Room Air Intake and Output 07/10/17 07/10/17 07/11/17 15:00 23:00 07:00 Intake Total 780 ml 350 ml 500 ml Output Total 850 ml 250 ml 850 ml Balance -70 ml 100 ml -350 ml Exam General: Patient in no acute distress, laying in bed and answers questions appropriately Mentation: Patient is alert and oriented 4, Head: Normocephalic atraumatic Eyes: EOMI, pupils reactive to light Neck: Supple, nontender, midline Respiratory: Clear to auscultation bilaterally Cardiovascular: regular rate, no obvious murmurs Gastrointestinal: non-tender to palpation, bowel sounds heard. Neurological: Moves all extremities spontaneously, left knee bandaged, pulses intact Results Result Diagram: 07/11/17 0453 07/09/17 0428 Results 24 hrs Laboratory Tests Test 07/11/17 04:53 White Blood Count 9.8 Red Blood Count 3.82 L Hemoglobin 11.5 L Hematocrit 33.7 L Mean Corpuscular Volume 88.2 Mean Corpuscular Hemoglobin 30.1 Mean Corpuscular Hemoglobin Concent 34.1 Red Cell Distribution Width 13.2 Platelet Count 181 Mean Platelet Volume 11.6 H Neutrophils % 70.0 Lymphocytes % 16.1 Monocytes % 7.5 Eosinophils % 5.2 Basophils % 0.4 Nucleated Red Blood Cells % 0.0 Neutrophils # 6.8 Lymphocytes # 1.6 Monocytes # 0.7 Eosinophils # 0.5 Basophils # 0.0 Nucleated Red Blood Cells # 0.0 Medications Medications Current Medications Lactated Ringer's (Lr) 1,000 ml @ 0 mls/hr Q0M IV* ; Start 07/04/17 at 06:00 Oxycodone HCl (Roxicodone) 20 mg Q3H PRN PO PAIN LEVEL 8-10 Last administered on 07/10/17 19:40; Admin Dose 20 MG; Start 07/04/17 at 15:30 Oxycodone HCl (Roxicodone) 10 mg Q3H PRN PO PAIN LEVEL 4-7 Last administered on 07/11/17 09:21; Admin Dose 10 MG; Start 07/05/17 at 09:00 Oxycodone HCl (Roxicodone) 5 mg Q3H PRN PO PAIN LEVEL 1-3 Last administered on 07/05/17 23:44; Admin Dose 5 MG; Start 07/05/17 at 09:00 Zolpidem Tartrate (Ambien) 5 mg HS PRN PO INSOMNIA; Start 07/04/17 at 15:30 Miscellaneous Information (Note) NOTE XX ; Start 07/04/17 at 15:30 Aspirin (Ecotrin) 325 mg BID PO Last administered on 07/11/17 09:03; Admin Dose 325 MG; Start 07/05/17 at 09:00 Celecoxib (Celebrex) 200 mg BID PO Last administered on 07/11/17 09:03; Admin Dose 200 MG; Start 07/05/17 at 09:00 Pantoprazole (Protonix Tab) 40 mg DAILY@06 PO Last administered on 07/11/17 06:34; Admin Dose 40 MG; Start 07/06/17 at 06:00 Docusate Sodium/ Ferrous Fumarate (Leonel-Sequels) 1 tab BID PO Last administered on 07/11/17 09:03; Admin Dose 1 TAB; Start 07/05/17 at 09:00 Simethicone (Mylicon) 80 mg TID PRN PO DISTENSION/GAS/BLOATING; Start 07/04/17 at 15:30 Senna/Docusate Sodium (Senokot-S) 2 tab BID PRN PO CONSTIPATION Last administered on 07/08/17 08:57; Admin Dose 2 TAB; Start 07/04/17 at 15:30 Magnesium Hydroxide (Milk Of Mag) 30 ml HS PRN PO CONSTIPATION; Start 07/04/17 at 15:30 Bisacodyl (Dulcolax Supp) 10 mg DAILY PRN [place] CONSTIPATION Last administered on 07/08/17 16:40; Admin Dose 10 MG; Start 07/04/17 at 15:30 Sodium Biphosphate/ Sodium Phosphate (Fleet Enema) 133 ml DAILY PRN [place] CONSTIPATION; Start 07/04/17 at 15:30 Diphenhydramine HCl (Benadryl) 25 mg Q4H PRN IM ITCHING OR RASH; Start at 15:30 Naloxone HCl (Narcan) 0.2 mg Q2M PRN IV DECREASED REPIRATORY RATE; Start at 15:30 Losartan Potassium (Cozaar) 100 mg DAILY PO Last administered on 07/11/17 09: 04; Admin Dose 100 MG; Start 07/05/17 at 09:00 Amlodipine Besylate (Norvasc) 10 mg DAILY PO Last administered on 07/11/17 09 :03; Admin Dose 10 MG; Start 07/05/17 at 09:00 Chlorthalidone (Hygroton) 25 mg DAILY PO Last administered on 07/11/17 09:03 ; Admin Dose 25 MG; Start 07/05/17 at 09:00 Sertraline HCl (Zoloft) 100 mg DAILY PO Last administered on 07/11/17 09:03; Admin Dose 100 MG; Start 07/05/17 at 09:00 Trazodone HCl (Desyrel) 100 mg HS PO Last administered on 07/10/17 20:17; Admin Dose 100 MG; Start 07/04/17 at 21:00 Atorvastatin Calcium (Lipitor) 40 mg DAILY@21 PO Last administered on 20:17; Admin Dose 40 MG; Start 07/04/17 at 21:00 Oxycodone/ Acetaminophen (Endocet (10/ 325)) 1 tab Q4H PRN PO BREAKTHROUGH PAIN Last administered on 07/08/17 15:36; Admin Dose 1 TAB; Start 07/04/17 at 20:00 Oxycodone/ Acetaminophen (Percocet (5/ 325)) 1 tab Q4H PRN PO PAIN 4-6 Last administered on 07/07/17 22:13; Admin Dose 1 TAB; Start 07/04/17 at 20:00 Acetaminophen (Tylenol Tab) 325 mg Q6H PRN PO FEVER/ PAIN 1-3; Start 07/04/17 at 20:00 CHUY LIM MD Jul 11, 2017 09:51
--- NOTE | 2017-07-11 12:19 | PN ---
Date/Time of Note Date/Time of Note DATE: 07/11/17 TIME: 12:16 Assessment/Plan VTE Prophylaxis VTE Prophylaxis Intervention: ambulation, SCD's, other (ASA 325) Lines/Catheters IV Catheter Type (from Nrsg): Saline Lock Killian in Place (from Nrsg): No Assessment/Plan Assessment/Plan -Pain Meds as needed -ASA for DVT Prophylaxis x 6 weeks outpatient discussed. -Continue monitoring as outpatient on discharge -Follow-up at scheduled postop outpatient appointment or sooner if there is any issue. -Patient Stable -Discharge to SNF Subjective 24 Hr Interval Summary POD 6 s/p R TKA. No acute overnight events. No complaints. Expected discharge today. Pain Control: well controlled Exam/Review of Systems Vital Signs Vitals Vital Signs Date Time Temp Pulse Resp B/P Pulse Ox O2 Delivery O2 Flow Rate FiO2 07/11/17 07:37 98.2 63 19 143/76 98 07/10/17 08:33 Room Air Intake and Output 07/10/17 07/10/17 07/11/17 15:00 23:00 07:00 Intake Total 780 ml 350 ml 500 ml Output Total 850 ml 250 ml 850 ml Balance -70 ml 100 ml -350 ml Exam Free Text/Dictation -No complications with dressing intact. -5/5 Tibialis Anterior, EHL Gastrocnemius/Soleus and Peroneals -Normal Sensation -Palpable DP/PT, Capillary Refill <2 secs -No Distal Edema -Negative Kiley Sign/No calf pain -Toes Freely Movable Constitutional: alert, oriented, well developed Results Result Diagram: 07/11/17 0453 07/09/17 0428 GABRIELE ROSS PA-C Jul 11, 2017 12:19
[2017-07-11 15:00] VITALS: BP 129/61; RESP 18
[2017-07-11 19:45] VITALS: BP 127/92; RESP 20
[2017-07-11] MEDS: OXYCODONE/ACETAMINOPHEN (10/325) TAB PO PRN (19:58)
[2017-07-11] MEDS: ATORVASTATIN 40 MG TAB PO SCH (20:23)
[2017-07-11] MEDS: traZODone 100 MG TAB PO SCH (20:23)
--- NOTE | 2017-07-12 08:27 | DS ---
Date/Time of Note Date/Time of Note DATE: 07/12/17 TIME: 08:24 Discharge Summary Admission/Discharge Info Admit Date/Time Jul 04, 2017 at 08:28 Discharge Date/Time Jul 11, 2017 at 21:50 Discharge Diagnosis Status post right total knee arthroplasty Patient Condition: Good Hx of Present Illness Please note that this dictation was done approximately the next day given to computer downtime. This dictation should be dated for July 04, 2017 at 1800. Patient is a 62-year-old male with a past medical history significant for hypertension, depression, asthma, chronic pancreatitis who presents to [facility] for elective right knee total knee replacement. Patient underwent successful total knee replacement and was admitted into the hospital for monitoring. Hospitalist service was called for medication management. Patient at time of interview has no acute complaints except for right knee pain. Patient denies any other acute issues at this time. Patient denies nausea, vomiting, shortness of breath, headache, chest pain. Patient takes all medications at home as directed. PMH: Asthma, GERD, pancreatitis, hypertension, depression, osteoarthritis PSH: Right inguinal hernia surgery, pancreatic surgery Social:occasional alcohol, occasional smoking, denies drugs except for occasional marijuana use Meds: Losartan, amlodipine, chlorthalidone, Zoloft, trazodone, atorvastatin, omeprazole Hospital Course On the day of admission, the patient underwent right total knee arthroplasty Intraoperative complications: None Postoperative complications: None The patient was given prophylactic antibiotics and anticoagulants. On the day of surgery and first postoperative day patient was started on gait training and was taught usual restrictions following knee replacement On postoperative day 1 dressing was clean dry and intact. No complications were observed. Patient ended up staying an additional 6 days as there was difficulty getting approval with acute rehab versus correction facility. Patient lives in mobile home and it was determined that it is not safe for patient return to mobile home even though his functionality was adequate. Patient does not have a bathroom in his mobile home and has to walk across the street. senior care facility was recommended to reduce her risk of injury and infection upon discharge from hospital. On the day of discharge, the wound was clean and healing well; there was no sign of infection. Wound care instructions were discussed with the patient. Discharge Temperature: 90 Discharge White Blood Cell Count: 9.8 Discharge Hemoglobin: 11.5 The patient was discharged correction facility. Arrangements were made for visiting nurses and home health/physical therapy. The patient will be seen in office at scheduled postoperative evaluation date given on their preoperative exam. Should patient complain of any problems prior to scheduled postoperative evaluation date, they may call into outpatient clinic to determine if they need to be scheduled at sooner appointment to be seen immediately if needed. Discharge medications: As per medication reconciliation form Diet: Same as preadmission diet. This is Gabriele Marinelli PA-C dictating discharge summary for Dr. Dex Darling. Home Meds Reported Medications Trazodone Hcl* (Trazodone Hcl*) 100 Mg Tablet, 100 MG PO QHS, #30 TAB 07/04/17 Losartan Potassium* (Losartan Potassium*) 100 Mg Tablet, 100 MG PO DAILY, TAB 07/04/17 Amlodipine-Benazepril (Amlodipine-Benazepril) 5-40 Mg Capsule, 1 TAB PO DAILY, # 30 TAB 07/04/17 Naproxen* (Naproxen*) 125 Mg/5 Ml Oral.susp, 500 MG PO BID, ML 07/04/17 Hydrocodone Bit-Acetaminophen* (Hydrocodone-APAP*) 1 Tab Tablet, 1 TAB PO DAILY 08/04/11 [Zoloft] No Conflict Check 08/04/11 Gemfibrozil* (Gemfibrozil*) 600 Mg Tablet, 600 MG PO DAILY 08/04/11 Lisinopril* (Lisinopril*) 10 Mg Tablet, 10 MG PO DAILY 08/04/11 Hydrochlorothiazide* (Hydrochlorothiazide*) 12.5 Mg Tablet, 12.5 MG PO DAILY 08/04/11 Follow-up Plan Follow-up with Dr. Rucker in 10-14 days at appointment given to you at your preoperative visit. Primary Care Provider Not On Staff Doctor GABRIELE ROSS PA-C Jul 12, 2017 08:27
== END 2017-07-11 21:50 | DRG 470 ==
LOC: REC 08:28 → MS1 17:35
PROVIDERS: ADMIT Orthopaedic Surgery Adult Reconstructive Orthopaedic Surgery; ATTEND Internal Medicine
PROC: 0SRC0J9 Replacement of Right Knee Joint with Synthetic Substitute, Cemented, Open Approach (ICD-10-PCS; principal; 2017-07-04 11:00)
DX: M17.11 Unilateral primary osteoarthritis, right knee (principal); K86.1 Other chronic pancreatitis; I10 Essential (primary) hypertension; K21.9 Gastro-esophageal reflux disease without esophagitis; F32.9 Major depressive disorder, single episode, unspecified
CPT/HCPCS: 73560; 80048; 83735; 84100; 85025; 86850; 86900; 86901; 86920; 87086; 88304; 88311; 97110; 97116; 97162; 97166; J0131; J0171; J0690; J0697; J0735; J1100; J1885; J2175; J2274; J2370; J2405; J2795; J3010; J3480; J7121